=== PATIENT | female | born 1955 | race Two or more races ===

== ENCOUNTER 2024-04-26 09:04 | Inpatient (IN) | payer MEDICARE, OTHER ==
[~2024-04-26] VITALS: Ht 160 cm; Wt 59.0 kg
--- NOTE | 2024-04-26 09:14 | ED.PDOC ---
History of Present Illness HPI Comments 68-year-old female with PMHx Dementia brought in by EMS presents with a chief complaint of joint pain s/p fall at home this morning. Patient states that she suffered a fall at home trying to get out of her bed and could not get herself back up. Patient mentions that she immediately felt pain to the left hip. EMS reports that when they got her up from the floor that her left leg was shortened and rotated. Patient denies hitting her head or losing consciousness. 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[employer] SUPERVISOR Hx Family History Family History: Reviewed,noncontributory to illness Social History Smoker: Non-Smoker Alcohol: Denies ETOH Use Drugs: Denies Drug Use Lives In: Home Constitutional: denies: chills, diaphoresis, fatigue, fever, malaise, sweats, weakness, others EENTM: denies: blurred vision, double vision, ear bleeding, ear discharge, ear drainage, ear pain, ear ringing, eye pain, eye redness, hearing loss, mouth pain, mouth swelling, nasal discharge, nose bleeding, nose congestion, nose pain, photophobia, tearing, throat pain, throat swelling, voice changes, others Respiratory: denies: cough, hemoptysis, orthopnea, SOB at rest, shortness of breath, SOB with excertion, stridor, wheezing, others Cardiovascular: denies: chest pain, dizzy spells, diaphoresis, Dyspnea on exertion, edema, irregular heart beat, left arm pain, lightheadedness, palpitations, PND, syncope, others Gastrointestinal: denies: abdomen distended, abdominal pain, blood streaked bowels, constipated, diarrhea, dysphagia, difficulty swallowing, hematemesis, melena, nausea, poor appetite, poor fluid intake, rectal bleeding, rectal pain, vomiting, others Genitourinary: denies: abnormal vagina bleeding, burning, dyspareunia, dysuria, flank pain, frequency, hematuria, incontinence, pain, , vagina discharge, urgency, others Neurological: denies: dizziness, fainting, headache, left sided numbness, left sided weakness, numbness, paresthesia, pre-existing deficit, right sided numbness, right sided weakness, seizure, speech problems, tingling, tremors, weakness, others Musculoskeletal: reports: joint pain (LEFT HIP); denies: back pain, gout, joint swelling, muscle pain, muscle stiffness, neck pain, others Integumetry: denies: bruises, change in color, change in hair/nails, dryness, laceration, lesions, lumps, rash, wounds, others Allergic/Immunocompromised: denies: Difficulty Healing, Frequent Infections, Hives, Itching, others Hematologic/Lymphatic: denies: anemia, blood clots, easy bleeding, easy bruising, swollen glands, others Endocrine: denies: excessive hunger, excessive sweating, excessive thirst, excessive urination, flushing, intolerance to cold, intolerance to heat, unexpla ined weight gain, unexplained weight loss, others Psychiatric: denies: anxiety, bipolar disorder, depression, hopeless, panic disorder, schizophrenia, sleepless, suicidal, others All Other Systems: Reviewed and Negative Physical Exam General Appearance: No Apparent Distress, Normal HEENT: Normal ENT Inspection, Pharynx Normal, TMs Normal Neck: Full Range of Motion, Non-Tender, Normal, Normal Inspection Respiratory: Chest Non-Tender, Lungs Clear, No Accessory Muscle Use, No Respiratory Distress, Normal Breath Sounds Cardiovascular: No Edema, No JVD, No Murmur, No Gallop, Normal Peripheral Pulses, Regular Rate/Rhythm Breast Exam: Deferred Gastrointestinal: No Organomegaly, Non Tender, No Pulsatile Mass, Normal Bowel Sounds, Soft Genitalia: Deferred Pelvic: Deferred Rectal: Deferred Extremities: Decreased range of motion, Normal capillary refill, No pedal edema, Tender (LEFT HIP TO PALPATION) Musculoskeletal : Apperance: Normal Neurologic: Alert, 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 Was a procedure done?: No Differential Dx Considerations may include: hip fracture, femur fracture. X-Ray, Labs, Meds, VS Vital Signs Date Time Temp Pulse Resp B/P (MAP) Pulse Ox O2 Delivery O2 Flow Rate FiO2 11/26/24 11:52 85 14 193/64 04/26/24 11:34 193/64 04/26/24 10:40 60 14 04/26/24 10:28 61 (120) 94 04/26/24 09:16 98.0 65 20 123/69 (87) 94 Lab Test 04/26/24 09:39 Range/Units White Blood Count 7.3 4.4-10.8 10^3/uL Red Blood Count 4.57 4.0-5.20 10^6/uL Hemoglobin 12.9 12.2-16.2 g/dL Hematocrit 38.9 36.0-46.0 % Mean Corpuscular Volume 85.2 80.0-100.0 fL Mean Corpuscular Hemoglobin 28.3 28.0-32.0 pg Mean Corpuscular Hemoglobin Concent 33.2 32.0-36.0 g/dL Red Cell Distribution Width 14.2 11.8-14.3 % Platelet Count 135 L 140-450 10^3/uL Mean Platelet Volume 9.1 6.9-10.8 fL Neutrophils (%) (Auto) 88.3 H 37.0-80.0 % Lymphocytes (%) (Auto) 5.9 L 10.0-50.0 % Monocytes (%) (Auto) 5.5 0.0-12.0 % Eosinophils (%) (Auto) 0.1 0.0-7.0 % Basophils (%) (Auto) 0.2 0.0-2.0 % Neutrophils # (Auto) 6.4 1.6-8.6 10 ^3/uL Lymphocytes # (Auto) 0.4 0.4-5.4 10 ^3/uL Monocytes # (Auto) 0.4 0-1.3 10 ^3/uL Eosinophils # (Auto) 0 0-0.8 10 ^3/uL Basophils # (Auto) 0 0-0.2 10 ^3/uL Nucleated Red Blood Cells 0.0 % Sodium Level 145 136-145 mmol/L Potassium Level 3.1 L 3.5-5.1 mmol/L Chloride Level 110 H 98-107 mmol/L Carbon Dioxide Level 27 20-31 mmol/L Anion Gap 8 5-15 Blood Urea Nitrogen 16 9-23 mg/dL Creatinine 0.77 0.550-1.02 mg/dL Glomerular Filtration Rate Calc 83 >90 mL/min BUN/Creatinine Ratio 20.8 H 10.0-20.0 Serum Glucose 113 H 74-106 mg/dL Calcium Level 10.1 8.7-10.4 mg/dL Troponin I High Sensitivity 3 L </=34 ng/L Current Medications Medications (Trade) Dose Ordered Sig/Mimi Route Start Time Stop Time Status Last Admin Morphine Sulfate 4 mg ONCE ONCE IV 04/26/24 09:15 04/26/24 09:16 DC 04/26/24 10:40 Sodium Chloride 1,000 ml @ 1,000 mls/hr Q1H ONCE IV 04/26/24 09:15 04/26/24 10:14 DC 04/26/24 10:00 Ondansetron HCl (Zofran) 4 mg ONCE ONCE IV 04/26/24 09:15 04/26/24 09:16 DC 04/26/24 10:39 Hydralazine HCl (Apresoline Injection) 10 mg ONCE ONCE IV 04/26/24 11:45 04/26/24 11:46 DC 04/26/24 11:34 Time of 1ST Reevaluation: 09:33 Reevaluation 1ST: Unchanged Patient Education/Counseling: Diagnosis, Treatment, Prognosis Family Education/Counseling: No Family Present Departure 1 Departure Time of Disposition: 11:58 (Patient has a left femur fracture. We will admit patient for expert consultation) Impression: Primary Impression: Fracture of femoral neck, left, closed Qualified Codes: S72.002A - Fracture of unspecified part of neck of left femur, initial encounter for closed fracture Additional Impression: Fall Qualified Codes: W19.XXXA - Unspecified fall, initial encounter Disposition: ADMITTED INPATIENT Admit to: Med Surg Condition: Serious Critical Care Note Critical Care Time?: No Stability Stability form required: No I personally scribed for DEANN THOMPSON MD ([email or web address]) on 04/26/24 at 09:14. Electronically submitted by Chris Gauthier [email or web address]). DEANN THOMPSON MD Apr 26, 2024 09:14
--- NOTE | 2024-04-26 09:55 | DVH ---
PROCEDURE: Left hip radiographs. INDICATION: fall TECHNIQUE: Frontal and lateral views of the left hip were obtained. COMPARISON: None FINDINGS: There is acute comminuted intertrochanteric left femoral neck fracture. Joint spaces are m aintained. The soft tissues are unremarkable. IMPRESSION: 1. Acute comminuted left femoral neck fracture.
[2024-04-26] MEDS: SODIUM CHLORIDE 0.9% 1,000 ML IV ONE (10:00)
[2024-04-26 10:03] LABS: Basophils # (auto) 0 10 ^3/uL (0-0.2); Basophils % (auto) 0.2 % (0.0-2.0); Eosinophils # (auto) 0 10 ^3/uL (0-0.8); Eosinophils % (auto) 0.1 % (0.0-7.0); Hematocrit 38.9 % (36.0-46.0); Hemoglobin 12.9 g/dL (12.2-16.2); Lymphocytes # (auto) 0.4 10 ^3/uL (0.4-5.4); Lymphocytes % (auto) 5.9 % (10.0-50.0); Mean Corpuscular Hemoglobin 28.3 pg (28.0-32.0); Mean Corpuscular Hgb Conc. 33.2 g/dL (32.0-36.0); Mean Corpuscular Volume 85.2 fL (80.0-100.0); Monocytes # (auto) 0.4 10 ^3/uL (0-1.3); Monocytes % (auto) 5.5 % (0.0-12.0); Neutrophils # (auto) 6.4 10 ^3/uL (1.6-8.6); Neutrophils % (auto) 88.3 % (37.0-80.0); Platelet Count (auto) 135 10^3/uL (140-450); Red Blood Cells 4.57 10^6/uL (4.0-5.20); Red Cell Distribution Width 14.2 % (11.8-14.3); White Blood Cell 7.3 10^3/uL (4.4-10.8)
--- NOTE | 2024-04-26 10:04 | DVH ---
CHEST RADIOGRAPH Indication: fall Technique: Single frontal view of the chest was obtained Comparison: None FINDINGS: Lines and Tubes: None Lungs: No focal consolidation. Pleura: No effusion. No pneumothorax. Cardiomediastinal contours: Unremarkable Bones: No acute osseous abnormality. IMPRESSION: 1. No acute cardiopulmonary disease.
[2024-04-26 10:15] LABS: Anion Gap 8 (5-15); Carbon Dioxide 27 mmol/L (20-31); Chloride 110 mmol/L (98-107); Potassium 3.1 mmol/L (3.5-5.1); Sodium 145 mmol/L (136-145)
[2024-04-26 10:16] LABS: Calcium 10.1 mg/dL (8.7-10.4)
[2024-04-26 10:21] LABS: BUN/Creatinine Ratio 20.8 (10.0-20.0); Blood Urea Nitrogen 16 mg/dL (9-23); Glucose 113 mg/dL (74-106)
[2024-04-26] MEDS: ONDANSETRON HCL 4 MG/2 ML VIAL IV ONE (10:39)
[2024-04-26] MEDS: MORPHINE SULFATE 4 MG/ML SYR/VIAL IV ONE (10:40)
[2024-04-26] MEDS ORDERED: hydrALAZINE HCL 20 MG/ML VL IV ONE (10:45)
[2024-04-26 11:00] VITALS: PULSE 61; RESP 14; O2SAT 94
[2024-04-26] MEDS: hydrALAZINE HCL 20 MG/ML VL IV ONE (11:34)
[2024-04-26] MEDS ORDERED: LORazepam 0.5 MG TAB PO PRN (12:30)
[2024-04-26] MEDS ORDERED: ONDANSETRON HCL 4 MG/2 ML VIAL IV PRN (12:30)
[2024-04-26] MEDS ORDERED: ACETAMINOPHEN 325 MG TAB PO PRN (12:30)
[2024-04-26] MEDS ORDERED: TEMAZEPAM 15 MG CAP PO PRN (12:30)
[2024-04-26] MEDS ORDERED: DOCUSATE SOD 100 MG CAP PO PRN (12:30)
[2024-04-26] MEDS ORDERED: DEXTROSE (50%) 50ML SYRG IV PRN (12:30)
[2024-04-26] MEDS ORDERED: MAALOX PLUS or MAALOX 30 ML PO PRN (12:30)
--- NOTE | 2024-04-26 12:34 | DVHHP2 ---
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 Dyspnea, Edema, Lt Headedness, Other Gastrointestinal: No: Nausea, Vomiting, Abdominal Pain, Diarrhea, Constipation, Melena, Hematochezia, Other Genitourinary: No Dysuria, No Frequency, No Incontinence, No Hematuria, No Retention, No Other Musculoskeletal: leg pain Skin: No: Rash, Lesions, Jaundice, Bruising, Other Neurological: No: Weakness, Numbness, Incoordination, Change in speech, Confusion, Seizures, Other Allergies: Coded Allergies: NO KNOWN ALLERGIES (Unverified , 04/26/24) Medications Current Medications Medications Dose Ordered Sig/Mimi Route Start Time Stop Time Status Last Admin Dose Admin Diagnostic Test (Pha) 1 strip IQ4HR 04/26/24 16:00 UNV Insulin Human Regular IQ4HR SC 04/26/24 16:00 UNV Dextrose 50 ml UD PRN IV 04/26/24 12:30 UNV Sodium Chloride 1,000 ml @ 60 mls/hr [id number] IV 04/26/24 12:30 UNV Lorazepam 0.5 mg Q6HP PRN PO 04/26/24 12:30 UNV Al Hydrox/Mg Hydrox/Simethicone 30 ml Q6HP PRN PO 04/26/24 12:30 UNV Docusate Sodium 100 mg BIDPRN PRN PO 04/26/24 12:30 UNV Acetaminophen 650 mg Q6HP PRN PO 04/26/24 12:30 UNV Temazepam 15 mg QHSP PRN PO 04/26/24 12:30 UNV Acetaminophen/ Hydrocodone Bitart 1 tab Q4HP PRN PO 04/26/24 12:30 UNV Ondansetron HCl 4 mg Q4HP PRN IV 04/26/24 12:30 UNV Morphine Sulfate 2 mg Q4HPRN PRN IV 04/26/24 12:30 UNV Hydralazine HCl 10 mg Q6HPRN PRN IV 04/26/24 12:30 UNV Exam Vital Signs Vital Signs Date Time Temp Pulse Resp B/P (MAP) Pulse Ox O2 Delivery O2 Flow Rate FiO2 04/26/24 11:52 85 14 193/64 04/26/24 10:28 94 04/26/24 09:16 98.0 General Appearance: Alert, Oriented X3 HEENT: Atraumatic, PERRLA Respiratory: Clear to auscultation, Normal air movement Cardiovascular: Regular rate, Normal S1, Normal S2 Abdominal: Normal bowel sounds, Soft, No tenderness Extremities: No clubbing, No cyanosis Skin: No rashes, No breakdown Neuro: Normal gait (Unable to ambulate due to fracture), Normal speech Psych/Mental Status: Mental status NL (For cognition to the history of dementia) Labs/Xrays Labs Test 04/26/24 09:39 Range/Units White Blood Count 7.3 4.4-10.8 10^3/uL Red Blood Count 4.57 4.0-5.20 10^6/uL Hemoglobin 12.9 12.2-16.2 g/dL Hematocrit 38.9 36.0-46.0 % Mean Corpuscular Volume 85.2 80.0-100.0 fL Mean Corpuscular Hemoglobin 28.3 28.0-32.0 pg Mean Corpuscular Hemoglobin Concent 33.2 32.0-36.0 g/dL Red Cell Distribution Width 14.2 11.8-14.3 % Platelet Count 135 L 140-450 10^3/uL Mean Platelet Volume 9.1 6.9-10.8 fL Neutrophils (%) (Auto) 88.3 H 37.0-80.0 % Lymphocytes (%) (Auto) 5.9 L 10.0-50.0 % Monocytes (%) (Auto) 5.5 0.0-12.0 % Eosinophils (%) (Auto) 0.1 0.0-7.0 % Basophils (%) (Auto) 0.2 0.0-2.0 % Neutrophils # (Auto) 6.4 1.6-8.6 10 ^3/uL Lymphocytes # (Auto) 0.4 0.4-5.4 10 ^3/uL Monocytes # (Auto) 0.4 0-1.3 10 ^3/uL Eosinophils # (Auto) 0 0-0.8 10 ^3/uL Basophils # (Auto) 0 0-0.2 10 ^3/uL Nucleated Red Blood Cells 0.0 % Sodium Level 145 136-145 mmol/L Potassium Level 3.1 L 3.5-5.1 mmol/L Chloride Level 110 H 98-107 mmol/L Carbon Dioxide Level 27 20-31 mmol/L Anion Gap 8 5-15 Blood Urea Nitrogen 16 9-23 mg/dL Creatinine 0.77 0.550-1.02 mg/dL Glomerular Filtration Rate Calc 83 >90 mL/min BUN/Creatinine Ratio 20.8 H 10.0-20.0 Serum Glucose 113 H 74-106 mg/dL Calcium Level 10.1 8.7-10.4 mg/dL Troponin I High Sensitivity 3 L </=34 ng/L Assessment/Plan Assessment/Plan , semesters Acute hip fracture Patient with acute mechanical fall with fracture Orthopedic surgery consulted in the ED P.r.n. pain medication and management Patient with a history of dementia New patient was hypertensive urgency no City history of hypertension Possibly in the setting of pain Manage pain at aggressively P.r.n. hydralazine as needed for blood pressures greater than 160 systolically over 105 diastolically Awaiting for consultation and evaluation by Orthopedics with another patient is a candidate for surgery No stated history of diabetes The patient has mildly hyperglycemic Will do insulin sliding scale mild while inpatient to manage better glucose control Plan discussed with: Patient My Orders Orders - ARACELY SOTO MD Procedure Category Date Status Time Glucose Blood PHA 04/26/24 Logged (Accu-Chek Comfort 16:00 Insulin R (Human) PHA 04/26/24 Logged (Insulin R) 16:00 Dextrose 50% Syringe PHA 04/26/24 Logged 12:30 Admit ADMIT 04/26/24 Transmitted 12:23 Code Status CODE 04/26/24 Transmitted 12:23 Vital Signs [facility] 04/26/24 In Process 12:23 Review Orders With [facility] 04/26/24 In Process Adm. 12:23 Consistent DIET 04/26/24 Transmitted Carb(Ccho)Diabetes Lunch Sodium Chloride 0.9% [facility] 04/26/24 Logged 12:30 Lorazepam Tablet [facility] 04/26/24 Logged (Ativan Tablet) 12:30 Alum & Mag PHA 04/26/24 Logged Hydrox-Simethicone 12:30 Docusate Sodium [facility] 04/26/24 Logged Capsule (Colace 12:30 Acetaminophen Tablet [facility] 04/26/24 Logged (Tylenol Tablet) 12:30 Temazepam (Restoril) [facility] 04/26/24 Logged 12:30 Notify Md Of Changes [facility] 04/26/24 In Process From Base 12:23 Advance Directive [facility] 04/26/24 In Process 12:23 Basic Metabolic Panel LAB 04/27/24 Verified 04:00 Complete Blood Count LAB 04/27/24 Verified 04:00 Patient Condition ORDERS 04/26/24 Transmitted 12:23 Allergies [facility] 04/26/24 In Process 12:23 Hydrocodone-Acet [facility] 04/26/24 Logged 5/325mg Tab ([place] 12:30 Ondansetron Hcl [facility] 04/26/24 Logged (Zofran) 12:30 Morphine Sulfate [facility] 04/26/24 Logged Injection 12:30 Notify Md Of Changes [facility] 04/26/24 In Process From Base 12:23 Oxygen By Nasal RT 04/26/24 Transmitted Cannula 12:23 Hydralazine Injection [facility] 04/26/24 Logged (Apresoline Inject 12:30 Potassium Effervesent [facility] 04/26/24 Transmitted Tab (Klor-Con/Ef) 12:30 Problem List: (1) Fall (2) Fracture of femoral neck, left, closed Date of Service: Apr 26, 2024 Billing Provider: ARACELY SOTO MD Common Visit Codes: [id number] INP/OBS CARE (HIGH) ARACELY SOTO MD Apr 26, 2024 12:34
[2024-04-26] MEDS: POTASSIUM EFFERVESENT TAB 25 MEQ PO ONE (13:49)
[2024-04-26] MEDS: SODIUM CHLORIDE 0.9% 1,000 ML IV SCH (14:25)
--- NOTE | 2024-04-26 15:19 | DVHINCON2 ---
Date of service: Apr 26, 2024 Referring Physician ED Reason for Consultation LEFT HIP PAIN History of Present Illness Patient suffered GLF at home so was brought to ER for severe pain and inability to bear weight LLE. Xrays reveal intertroch fracture for which ortho consult requested. Patient is independent ambulator without assitive devices. Patient suffered recent stroke from which family states she has recovered pretty well but was diagnosed with vascular dementia which has been getting somewhat worse. Past Medical History dementia Past Surgical History unknown Social History no smoking, drinking or drugs Allergies: Coded Allergies: NO KNOWN ALLERGIES (Unverified , 04/26/24) Current Medications Current Medications Medications (Trade) Dose Ordered Sig/Mimi Route PRN Reason Start Time Stop Time Status Last Admin Diagnostic Test (Pha) (Accu-Chek Comfort Curve T) 1 strip IQ4HR 04/26/24 16:00 Insulin Human Regular (InsuLIN R) IQ4HR SC 04/26/24 16:00 Dextrose 50 ml UD PRN IV Blood Sugar LESS THAN 60 04/26/24 12:30 Sodium Chloride 1,000 ml @ 60 mls/hr [id number] IV 04/26/24 12:30 04/26/24 14:25 Lorazepam (Ativan Tablet) 0.5 mg Q6HP PRN PO ANXIETY 04/26/24 12:30 Al Hydrox/Mg Hydrox/Simethicone (Maalox Plus) 30 ml Q6HP PRN PO FOR STOMACH DISTRESS 04/26/24 12:30 Docusate Sodium (Colace Capsule) 100 mg BIDPRN PRN PO FOR CONSTIPATION 04/26/24 12:30 Acetaminophen (Tylenol Tablet) 650 mg Q6HP PRN PO PAIN SCALE 1-3 OR TEMP>100.4 04/26/24 12:30 Temazepam (Restoril) 15 mg QHSP PRN PO FOR INSOMNIA 04/26/24 12:30 Acetaminophen/ Hydrocodone Bitart ([place] 5/325MG Tab) 1 tab Q4HP PRN PO MODERATE PAIN (4-6 PAIN SCALE) 04/26/24 12:30 Ondansetron HCl (Zofran) 4 mg Q4HP PRN IV NAUSEA / VOMITING 04/26/24 12:30 Morphine Sulfate 2 mg Q4HPRN PRN IV SEVERE PAIN (7-10 PAIN SCALE) 04/26/24 12:30 Hydralazine HCl (Apresoline Injection) 10 mg Q6HPRN PRN IV SBP>160 or DBP>105 04/26/24 12:30 Review of Systems unknown Vital Signs Vital Signs Date Time Temp Pulse Resp B/P (MAP) Pulse Ox O2 Delivery O2 Flow Rate FiO2 04/26/24 12:45 80 14 156/59 (91) 94 04/26/24 11:00 Room Air* 0 21 04/26/24 09:16 98.0 Physical Exam wdwn female in nad alert but slow response, wasn't sure why she was at the hospital LLE short and rotated pain LLE with any passive rom left hip distally she could move her toes but not her ankle pulse intact no significant pedla edema xray (pelvis and hip) acute displaced left hip intertroch fracture Labs/Diagnostic Data Labs Test 04/26/24 09:39 Range/Units White Blood Count 7.3 4.4-10.8 10^3/uL Red Blood Count 4.57 4.0-5.20 10^6/uL Hemoglobin 12.9 12.2-16.2 g/dL Hematocrit 38.9 36.0-46.0 % Mean Corpuscular Volume 85.2 80.0-100.0 fL Mean Corpuscular Hemoglobin 28.3 28.0-32.0 pg Mean Corpuscular Hemoglobin Concent 33.2 32.0-36.0 g/dL Red Cell Distribution Width 14.2 11.8-14.3 % Platelet Count 135 L 140-450 10^3/uL Mean Platelet Volume 9.1 6.9-10.8 fL Neutrophils (%) (Auto) 88.3 H 37.0-80.0 % Lymphocytes (%) (Auto) 5.9 L 10.0-50.0 % Monocytes (%) (Auto) 5.5 0.0-12.0 % Eosinophils (%) (Auto) 0.1 0.0-7.0 % Basophils (%) (Auto) 0.2 0.0-2.0 % Neutrophils # (Auto) 6.4 1.6-8.6 10 ^3/uL Lymphocytes # (Auto) 0.4 0.4-5.4 10 ^3/uL Monocytes # (Auto) 0.4 0-1.3 10 ^3/uL Eosinophils # (Auto) 0 0-0.8 10 ^3/uL Basophils # (Auto) 0 0-0.2 10 ^3/uL Nucleated Red Blood Cells 0.0 % Sodium Level 145 136-145 mmol/L Potassium Level 3.1 L 3.5-5.1 mmol/L Chloride Level 110 H 98-107 mmol/L Carbon Dioxide Level 27 20-31 mmol/L Anion Gap 8 5-15 Blood Urea Nitrogen 16 9-23 mg/dL Creatinine 0.77 0.550-1.02 mg/dL Glomerular Filtration Rate Calc 83 >90 mL/min BUN/Creatinine Ratio 20.8 H 10.0-20.0 Serum Glucose 113 H 74-106 mg/dL Calcium Level 10.1 8.7-10.4 mg/dL Troponin I High Sensitivity 3 L </=34 ng/L Assessment left proximal femur displaced intertrochanteric fracture Plan/Recommendation I recommend closed reduction, cephalomedullary nail. I spoke with son/daughterinlaw and local daughter. I explained diagnosis, prognosis, procedure, options and risks which include but are not limited to infection, bleeding, transfusion, malunion, nonunion, leg length discrepancy, nerve injury, iatrogenic fracture, DVT, PE and even . Family understood and agreed to proceed. All questions answered. Local daughter has POA and consent signed with nursing witnesses. Plan discussed with: Patient, Daughter, Son MINOR REYES MD Apr 26, 2024 15:19
[2024-04-26] MEDS: InsuLIN REG 1unit/0.01ml Soln (100units/ml) SC SCH (16:00)
[2024-04-26 16:17] LABS: Urine Bacteria None Seen /hpf (None Seen)
[2024-04-26] MEDS: ACCU-CHEK COMFORT CURVE STRIP VI SCH (16:19)
[2024-04-26 16:40] LABS: Urine Blood Negative /uL (Negative); Urine Clarity Clear (Clear); Urine Color Yellow (Yellow); Urine Protein, UAD Negative (Negative); Urine Specific Gravity 1.014 (1.001-1.035); Urine Urobilinogen Normal (Negative); Urine WBC 1 /hpf (0 - 5)
[2024-04-26 19:00] VITALS: BP 153/67; PULSE 60; RESP 19; TEMP 98.7; O2SAT 92
[2024-04-26 19:25] VITALS: PULSE 60; RESP 19; O2SAT 92
[2024-04-26 20:00] VITALS: O2SAT 95
[2024-04-26 21:00] VITALS: BP 175/67; PULSE 64; RESP 17; TEMP 98.4; O2SAT 94
[2024-04-26] MEDS: hydrALAZINE HCL 20 MG/ML VL IV PRN (21:21)
[2024-04-27] VITALS (8 sets, daily range): BP systolic 116–164; BP diastolic 54–76; PULSE 64–74; RESP 14–18; TEMP 97.8–98.4; O2SAT 92–98
[2024-04-27] MEDS: MORPHINE SULFATE INJ 2 MG/ml SYRG IV PRN (04:20)
[2024-04-27 06:26] LABS: Chloride 108 mmol/L (98-107); Potassium 3.4 mmol/L (3.5-5.1); Sodium 142 mmol/L (136-145)
[2024-04-27 06:27] LABS: Anion Gap 9 (5-15); Carbon Dioxide 25 mmol/L (20-31)
[2024-04-27 06:32] LABS: Glucose 109 mg/dL (74-106)
[2024-04-27 06:33] LABS: BUN/Creatinine Ratio 15.5 (10.0-20.0); Blood Urea Nitrogen 11 mg/dL (9-23)
[2024-04-27 06:42] LABS: Basophils # (auto) 0 10 ^3/uL (0-0.2); Basophils % (auto) 0.5 % (0.0-2.0); Eosinophils # (auto) 0 10 ^3/uL (0-0.8); Eosinophils % (auto) 0.3 % (0.0-7.0); Hematocrit 36.4 % (36.0-46.0); Hemoglobin 12.2 g/dL (12.2-16.2); Lymphocytes # (auto) 0.5 10 ^3/uL (0.4-5.4); Lymphocytes % (auto) 7.8 % (10.0-50.0); Mean Corpuscular Hemoglobin 28.5 pg (28.0-32.0); Mean Corpuscular Hgb Conc. 33.6 g/dL (32.0-36.0); Mean Corpuscular Volume 84.8 fL (80.0-100.0); Monocytes # (auto) 0.4 10 ^3/uL (0-1.3); Monocytes % (auto) 5.9 % (0.0-12.0); Neutrophils # (auto) 5.8 10 ^3/uL (1.6-8.6); Neutrophils % (auto) 85.5 % (37.0-80.0); Nucleated Red Blood Cells % 0.1 %; Platelet Count (auto) 124 10^3/uL (140-450); Red Blood Cells 4.29 10^6/uL (4.0-5.20); Red Cell Distribution Width 14.4 % (11.8-14.3); White Blood Cell 6.7 10^3/uL (4.4-10.8)
[2024-04-27 08:00] LABS: INR 1.05 (0.9-1.15); Partial Thromboplastin Time 28.8 SEC (24.5-34.5); Prothrombin Time 11.1 sec (9.3-11.8)
--- NOTE | 2024-04-27 11:02 | DVH ---
EXAM: CT STROKE CTH HISTORY: Evaluate for CVA. COMPARISON: None TECHNIQUE: Axial images of the head were obtained and reformatted in coronal and sagittal planes. All CT scans at this medical facility are performed using dose modulation techniques as appropriate t o a performed exam including the following: Automated exposure control was utilized; adjustment of th e MA and/or KV according to patient size; and use of iterative reconstruction technique. CT Dose: CTDI volume is 56.99 mGy. Dose-length product is 1237.06 mGy*cm FINDINGS: There is large amount of beam hardening artifact from aneurysmal coils positioned in the left posteri or suprasellar region limiting evaluation of adjacent parenchyma. There is a chronic lacunar infarct along the right anterior thalamus. There is no evidence of acute i ntracranial hemorrhage, mass, mass effect midline shift. There is no hydrocephalus or extra-axial flu id collection. Hopkins-white matter differentiation otherwise appears maintained.. The visualized paranasal sinuses and mastoid air cells are clear. The calvarium is intact. IMPRESSION: 1. There is no gross acute intracranial process. 2. Chronic lacunar infarct along the right anterior thalamus. 3. Large amount of beam hardening artifact from aneurysm coils positioned in the left posterior supra sellar region limiting evaluation of the adjacent brain parenchyma. HS:Y
[2024-04-27] MEDS ORDERED: LIDOCAINE 1% INJ PF 5ML AMP ONE (12:07)
[2024-04-27] MEDS ORDERED: KETOROLAC TROMETH 30 MG/ML 1ML VIAL ONE (12:07)
[2024-04-27] MEDS ORDERED: PROPOFOL 10 MG/ML 20 ML IV ONE (12:07)
[2024-04-27] MEDS ORDERED: ONDANSETRON HCL 4 MG/2 ML VIAL ONE (12:07)
[2024-04-27] MEDS ORDERED: DexAMETHasone SOD PHOS 10MG/1ML VIAL INJ ONE (12:07)
[2024-04-27] MEDS ORDERED: GLYCOPYRROLATE 0.2 MG/ML 1ML VIAL ONE (12:07)
[2024-04-27] MEDS ORDERED: EPINEPHrine HCL 1 MG/1 ML AMP ONE (12:09)
[2024-04-27] MEDS: ceFAZolin 2 GM/D5W100ml 100 ML IV ONE (13:04)
--- NOTE | 2024-04-27 13:07 | DVHPN2 ---
Subjective Continue to complain of left hip pain Reviewed: Care Plan, H&P, Labs, Medications, Previous Orders, Radiology, Other (Consultation) Changes from previous H/P or p: Changes Objective Vitals Vital Signs Date Time Temp Pulse Resp B/P (MAP) Pulse Ox O2 Delivery O2 Flow Rate FiO2 04/27/24 12:16 98.2 66 18 164/56 (92) 92 98.2 04/27/24 08:00 Room Air* 0 21 Intake/Output Intake and Output 04/27/24 07:00 Intake Total 1180 ml Output Total 2100 ml Balance -920 ml Intake IV Total 1180 ml Output Urine Total 2100 ml Exam Female nurse was customer service leader General Appearance: Alert, Oriented X3, Cooperative, mild distress HEENT: Atraumatic Lungs: Clear to auscultation, Normal air movement Cardiovascular: Regular rate, Normal S1, Normal S2, No murmurs Abdomen: Normal bowel sounds, Soft, No tenderness Musculoskeletal: Other (Tender left hip) Neuro: Normal speech, Cranial nerves 3-12 NL Psych/Mental Status: Mental status NL, Mood NL Medications Current Medications Medications Dose Ordered Sig/Mimi Route Start Time Stop Time Status Last Admin Dose Admin Diagnostic Test (Pha) 1 strip IQ4HR 04/26/24 16:00 04/27/24 08:37 1 STRIP Insulin Human Regular IQ4HR SC 04/26/24 16:00 Dextrose 50 ml UD PRN IV 04/26/24 12:30 Sodium Chloride 1,000 ml @ 60 mls/hr [id number] IV 04/26/24 12:30 04/27/24 05:16 60 MLS/HR Lorazepam 0.5 mg Q6HP PRN PO 04/26/24 12:30 Al Hydrox/Mg Hydrox/Simethicone 30 ml Q6HP PRN PO 04/26/24 12:30 Docusate Sodium 100 mg BIDPRN PRN PO 04/26/24 12:30 Acetaminophen 650 mg Q6HP PRN PO 04/26/24 12:30 Temazepam 15 mg QHSP PRN PO 04/26/24 12:30 Acetaminophen/ Hydrocodone Bitart 1 tab Q4HP PRN PO 04/26/24 12:30 Ondansetron HCl 4 mg Q4HP PRN IV 04/26/24 12:30 Morphine Sulfate 2 mg Q4HPRN PRN IV 04/26/24 12:30 04/27/24 12:03 2 MG Hydralazine HCl 10 mg Q6HPRN PRN IV 04/26/24 12:30 04/26/24 21:21 10 MG Laboratory Results Laboratory Tests 04/27/24 05:32 Chemistry Test 04/27/24 05:32 Calcium Level 9.0 mg/dL (8.7-10.4) Coagulation Test 04/27/24 05:32 Prothrombin Time 11.1 sec (9.3-11.8) Prothrombin Time INR 1.05 (0.9-1.15) Activated Partial Thromboplast Time 28.8 SEC (24.5-34.5) Urinalysis Test 04/26/24 16:17 Urine Color Yellow (Yellow) Urine Clarity Clear (Clear) Urine pH 6.0 (5.0-9.0) Urine Specific [place] 1.014 (1.001-1.035) Urine Protein Negative (Negative) Urine Ketones Negative (Negative) Urine Blood Negative /uL (Negative) Urine Nitrite Negative (Negative) Urine Bilirubin Negative (Negative) Urine Urobilinogen Normal mg/dL (Negative) Urine Leukocyte Esterase Negative /uL (Negative) Urine RBC 1 /hpf (0 - 4) Urine WBC 1 /hpf (0 - 5) Urine Squamous Epithelial Cells Few /hpf (<5) Urine Bacteria None seen /hpf (None Seen) Urine Glucose Normal mg/dL (Normal) Labs and/or images reviewed: Labs reviewed by me, Image(s) reviewed by me Assessment/Plan Assessment/Plan A 68-year-old female patient with multiple comorbidities; who presented to the emergency department after a fall that resulted in left hip fracture. #Left hip pain due to comminuted displaced left proximal femur intertrochanteric fracture due to fall; orthopedic surgery is following; surgery is planned for today; continue pain management as needed; reviewed the available imaging studies; fall precautions; continue monitoring #Suspected acute metabolic/toxic encephalopathy; patient has no recollection of the fall but awake, alert, and oriented; family members concerned about stroke; head CT without contrast ordered; continue monitoring #History of stroke; holding aspirin statin for now; head CT ordered as above; continue monitoring #Thrombocytopenia; mild; no signs/symptoms of bleeding; continue monitoring #RIA with hypokalemia; suspected vasomotor nephropathy; replace electrolyte as needed; avoid nephrotoxic agents; continue IV fluids; continue monitoring #Essential hypertension; holding home antihypertensive medications; continue IV hydralazine as needed; continue monitoring Goals of care discussed for 20 minutes; full code This medical document was created using an electronic medical record system with computerized dictation system. Although this document has been carefully reviewed, there might still be some phonetic and typographical errors. These areas are purely typographical due to imperfections of the software programs, and do not reflect any compromise in the patient's medical care. Plan discussed with: Patient, Other (Nurse) My Orders Orders - MARIO GREENFIELD MD Procedure Category Date Status Time Ct Head Cva CT 04/27/24 Resulted 10:23 Drug Screen LAB 04/27/24 Logged 10:24 Date of Service: Apr 27, 2024 Billing Provider: MARIO GREENFIELD MD Common Visit Codes: [id number] INP/OBS CARE(HIGH) Secondary Visit Codes: [id number] CARE PLAN 30 MINUTES (20 minutes) MARIO GREENFIELD MD Apr 27, 2024 13:07
[2024-04-27] MEDS: CELECOXIB 100 MG CAP PO ONE (13:17)
[2024-04-27] MEDS: ACETAMINOPHEN IV 1000 MG/100ML (10MG/ML) IV ONE (13:17)
[2024-04-27] MEDS: GABAPENTIN 300 MG CAP PO ONE (13:17)
[2024-04-27] MEDS: BUPIVACAINE HCL 50 ML ONE (13:27)
[2024-04-27] MEDS: BUPIVACAINE 0.25% INJ 50ML VIAL ONE (13:27)
[2024-04-27] MEDS: DexAMETHasone SOD PHOS 4 MG/1ML SDV INJ ONE (13:27)
[2024-04-27 13:51] LABS: Amphetamine Screen, Urine Neg (NEGATIVE); Barbiturate Scree,Urine Neg (NEGATIVE); Benzodiazephine Screen, Urine Neg (NEGATIVE); Cannabinoid Screen, Urine Neg (NEGATIVE); Cocaine Screen, Urine Neg (NEGATIVE); Opiate Scree,Urine Neg (NEGATIVE); Phencyclidine Screen, Urine Neg (NEGATIVE)
--- NOTE | 2024-04-27 15:16 | DVHOP2 ---
Operative Report - 2 Report Details Date: 04/27/24 Preop Diagnosis: Left proximal femur intertrochanteric fracture Postop Diagnosis: Same Surgeon: Minor Reyes MD Can Filler: Tho CALLEJAS Anesthesiologist: Jaron Drake Anesthesia: General Implant: AOS short cephalomedullary nail with 95 mm hip screw and 36 mm distal locking screw Consent: The patient was informed of the risks and benefits of the procedure. These include but are not limited to complications of anesthesia, postoperative infection, incomplete relief of symptoms, recurrence of symptoms, damage to blood vessels, nerves and tendons, deep venous thrombosis, pulmonary embolism and possible need for repeat surgery in the future. Complications: None Estimated Blood Loss: 25 cc Fluids: See anesthesia record Findings: Comminuted displaced left proximal femur intertrochanteric fracture Indications for Surgery: Unstable hip fracture Name of Procedure Performed Closed reduction, cephalomedullary nail left proximal femur intertrochanteric fracture with C-arm fluoroscopy Procedure Details Procedure Details: The patient was brought to the operating room and placed on the [place] table in the supine position. The patient was given spinal anesthetic with adequate analgesia obtained. Preop patient received IV Ancef. Nonoperative extremity was placed in the well-leg almanzar. Operative extremity placed in boot traction. Closed reduction maneuver performed and verified with C-arm fluoroscopy in AP and lateral views. Surgical timeout performed verifying patient, laterality and procedure. Operative extremity was prepped and draped in sterile fashion. Incision was made proximal to the greater trochanter then I incised the fascia. I passed a guidewire into the proximal femur and adjusted the position based on AP and lateral views with C arm. I used the soft tissue protector and reamed over the guidewire then guidewire was removed. I then inserted the previously templated nail until appropriate depth was reached based on C-arm fluoroscopy. I then passed the hip screw cannula to skin then made skin and fascial incision and passed it to bone. I inserted a guidewire into the proximal femoral neck and head and again adjusted position based on C arm. I measured for length. I then reamed and inserted the hip screw. I released traction and applied the compression nut. I then pulled back on the silver sleeve and turned the black handle. Guidewire and cannula were removed. I then removed the insertion device to allow hip screw compression. Cannula was removed. I then used the distal locking cannula through the static hole passing it to skin and making skin and fascial incision then passing it to bone. I drilled and measured length off the drill bit and inserted distal locking screw. I obtain C arm views AP and lateral throughout the length of the construct to verify fracture reduction and hardware placement. Wounds were irrigated with normal saline. Fascial tissue closed with 0 Vicryl. Subcu closed with 2-0 Vicryl. Skin closed with edu. Wounds dressed sterilely. Patient tolerated procedure well was brought to recovery in stable condition. Condition Stable Disposition Still a Patient MINOR REYES MD Apr 27, 2024 15:16
[2024-04-27] MEDS: LACTATED RINGER'S 1,000 ML IV SCH (16:04)
--- NOTE | 2024-04-27 16:35 | DVH ---
CLINICAL INDICATION: LEFT HIP NAILING TECHNIQUE: 11 radiographic views of the ORIF left hip were obtained. Comparison: XY L HIP COMPLETE XRAY on DOS: 04/26/24 FINDINGS/IMPRESSION: 11 images of an ORIF of the left hip. Total fluoro time 40.3 seconds Cumulative dose: 4.91 mGy
--- NOTE | 2024-04-27 16:36 | DVH ---
C-ARM FLUOROSCOPY: PROCEDURE: ORIF left hip FLUOROSCOPY TIME: 40.3 seconds Cumulative dose: 4.91 mGy
[2024-04-27] MEDS: ceFAZolin 2 GM/D5W50ml 50 ML IV SCH (21:49)
[2024-04-27] MEDS: SODIUM CHLOR 0.9% PF (SALINE LOCK) 10ML VIAL/SYR IV SCH (21:49)
[2024-04-28] VITALS (7 sets, daily range): BP systolic 121–174; BP diastolic 58–95; PULSE 62–81; RESP 16–20; TEMP 97.8–98.6; O2SAT 94–96
[2024-04-28 06:05] LABS: Basophils # (auto) 0 10 ^3/uL (0-0.2); Eosinophils # (auto) 0 10 ^3/uL (0-0.8); Hematocrit 31.7 % (36.0-46.0); Hemoglobin 10.7 g/dL (12.2-16.2); Lymphocytes # (auto) 0.6 10 ^3/uL (0.4-5.4); Mean Corpuscular Hemoglobin 28.8 pg (28.0-32.0); Mean Corpuscular Hgb Conc. 33.7 g/dL (32.0-36.0); Mean Corpuscular Volume 85.4 fL (80.0-100.0); Monocytes # (auto) 0.6 10 ^3/uL (0-1.3); Monocytes % (auto) 7.8 % (0.0-12.0); Neutrophils # (auto) 6.7 10 ^3/uL (1.6-8.6); Neutrophils % (auto) 85.2 % (37.0-80.0); Nucleated Red Blood Cells % 0.1 %; Platelet Count (auto) 124 10^3/uL (140-450); Red Blood Cells 3.71 10^6/uL (4.0-5.20); Red Cell Distribution Width 14.6 % (11.8-14.3); White Blood Cell 7.8 10^3/uL (4.4-10.8)
[2024-04-28 06:25] LABS: Albumin 3.7 g/dL (3.2-4.8); Alkaline Phosphatase 49 U/L (46-116); Anion Gap 9 (5-15); Bilirubin, Total 0.6 mg/dL (0.2-1.0); Blood Urea Nitrogen 16 mg/dL (9-23); Calcium 9.1 mg/dL (8.7-10.4); Carbon Dioxide 27 mmol/L (20-31); Chloride 106 mmol/L (98-107); Magnesium 1.8 mg/dL (1.6-2.6); Sodium 142 mmol/L (136-145)
[2024-04-28 06:49] LABS: Alanine Aminotransferase < 9 U/L (7-40); Aspartate Aminotransferase < 8 U/L (13-40); Glucose 132 mg/dL (74-106); Total Protein 5.7 g/dL (5.7-8.2)
[2024-04-28] MEDS: ENOXAPARIN SOD 40 MG/0.4 ML SYRINGE SC SCH (08:18)
--- NOTE | 2024-04-28 11:49 | DVHPN2 ---
Progress Note - Dictate Date Seen: Apr 28, 2024 Medical Necessity Reason Pt with a Central, PICC or Fol: No Subjective Patient was lying comfortably in bed during my evaluation and reports some postoperative hip pain that is being well managed with the help of pain medication. Patient reports that she has only been able to take a few steps near bedside to use her commode and then back to her bed. Patient is otherwise feeling well denying any other complaints or concerns during my evaluation. vital signs Vital Sign Date Time Temp Pulse Resp B/P (MAP) Pulse Ox O2 Delivery O2 Flow Rate FiO2 04/28/24 09:00 98.4 66 16 174/78 (110) 96 98.4 04/28/24 08:01 Room Air* 0 21 Total Intake and Output 04/27/24 04/27/24 04/28/24 15:00 23:00 07:00 Intake Total 100 ml 1000 ml 1000 ml Output Total 550 ml 250 ml Balance 100 ml 450 ml 750 ml medications Current Medications Medications Dose Ordered Sig/Mimi Route Start Time Stop Time Status Last Admin Dose Admin Sodium Chloride 1,000 ml @ 60 mls/hr [id number] IV 04/26/24 12:30 04/27/24 21:48 60 MLS/HR Lorazepam 0.5 mg Q6HP PRN PO 04/26/24 12:30 Al Hydrox/Mg Hydrox/Simethicone 30 ml Q6HP PRN PO 04/26/24 12:30 Docusate Sodium 100 mg BIDPRN PRN PO 04/26/24 12:30 Acetaminophen 650 mg Q6HP PRN PO 04/26/24 12:30 Temazepam 15 mg QHSP PRN PO 04/26/24 12:30 Acetaminophen/ Hydrocodone Bitart 1 tab Q4HP PRN PO 04/26/24 12:30 Ondansetron HCl 4 mg Q4HP PRN IV 04/26/24 12:30 Morphine Sulfate 2 mg Q4HPRN PRN IV 04/26/24 12:30 04/28/24 05:47 2 MG Hydralazine HCl 10 mg Q6HPRN PRN IV 04/26/24 12:30 04/28/24 08:17 10 MG Lactated Ringer's 1,000 ml @ 100 mls/hr Q10H IV 04/27/24 15:30 04/28/24 01:30 100 MLS/HR Sodium Chloride 10 ml Q8HR IV 04/27/24 22:00 04/28/24 05:35 10 ML Enoxaparin Sodium 40 mg DAILY SC 04/28/24 10:00 04/28/24 08:18 40 MG objective A&O x4 in no acute distress Hip range of motion grossly limited with pain on movement Dressing clean, dry, and intact No distal edema or calf tenderness to palpation Neurovascularly intact with cap refill less than 2 seconds laboratory and microbiology Laboratory Tests 04/28/24 05:41 Test 04/28/24 05:41 Range/Units Serum Glucose 132 H 74-106 mg/dL Assessment/Plan Continue current management as well as pain control and physical therapy. Advised patient to remain weight-bearing as tolerated with the assistance of a walker and to maintain her dressings clean, dry, and intact. I instructed the patient to follow up with our office in 10-14 days for her 1st postoperative evaluation and to call our office if she has any questions or concerns. She understood and agreed. Plan discussed with: Patient KAREEN DE LA CRUZ Apr 28, 2024 11:49
--- NOTE | 2024-04-28 12:31 | DVHPN2 ---
Subjective Decreasing left hip pain Reviewed: Care Plan, H&P, Labs, Medications, Previous Orders, Radiology, Other (Consultation) Changes from previous H/P or p: Changes Objective Vitals Vital Signs Date Time Temp Pulse Resp B/P (MAP) Pulse Ox O2 Delivery O2 Flow Rate FiO2 04/28/24 11:54 88 14 159/78 04/28/24 09:00 98.4 96 98.4 04/28/24 08:01 Room Air* 0 21 Intake/Output Intake and Output 04/28/24 07:00 Intake Total 2100 ml Output Total 800 ml Balance 1300 ml Intake Oral 1000 ml IV Total 1100 ml Output Urine Total 800 ml Exam Female nurse was faculty i on call medical assistant General Appearance: Alert, Oriented X3, Cooperative, mild distress HEENT: Atraumatic Lungs: Clear to auscultation, Normal air movement Cardiovascular: Regular rate, Normal S1, Normal S2, No murmurs Abdomen: Normal bowel sounds, Soft, No tenderness Musculoskeletal: Other (Clean dressing on the surgical wound with no swelling/discharge/bleeding with mild tenderness) Neuro: Normal speech, Cranial nerves 3-12 NL Psych/Mental Status: Mental status NL, Mood NL Medications Current Medications Medications Dose Ordered Sig/Mimi Route Start Time Stop Time Status Last Admin Dose Admin Sodium Chloride 1,000 ml @ 60 mls/hr [id number] IV 04/26/24 12:30 04/27/24 21:48 60 MLS/HR Lorazepam 0.5 mg Q6HP PRN PO 04/26/24 12:30 Al Hydrox/Mg Hydrox/Simethicone 30 ml Q6HP PRN PO 04/26/24 12:30 Docusate Sodium 100 mg BIDPRN PRN PO 04/26/24 12:30 Acetaminophen 650 mg Q6HP PRN PO 04/26/24 12:30 Temazepam 15 mg QHSP PRN PO 04/26/24 12:30 Acetaminophen/ Hydrocodone Bitart 1 tab Q4HP PRN PO 04/26/24 12:30 Ondansetron HCl 4 mg Q4HP PRN IV 04/26/24 12:30 Morphine Sulfate 2 mg Q4HPRN PRN IV 04/26/24 12:30 04/28/24 11:54 2 MG Hydralazine HCl 10 mg Q6HPRN PRN IV 04/26/24 12:30 04/28/24 08:17 10 MG Lactated Ringer's 1,000 ml @ 100 mls/hr Q10H IV 04/27/24 15:30 04/28/24 01:30 100 MLS/HR Sodium Chloride 10 ml Q8HR IV 04/27/24 22:00 04/28/24 11:48 10 ML Enoxaparin Sodium 40 mg DAILY SC 04/28/24 10:00 04/28/24 08:18 40 MG Laboratory Results Laboratory Tests 04/28/24 05:41 Chemistry Test 04/28/24 05:41 Albumin 3.7 g/dL (3.2-4.8) Calcium Level 9.1 mg/dL (8.7-10.4) Magnesium Level 1.8 mg/dL (1.6-2.6) Total Protein 5.7 g/dL (5.7-8.2) LFT Test 04/28/24 05:41 Alanine Aminotransferase (ALT) < 9 U/L (7-40) Alkaline Phosphatase 49 U/L (46-116) Aspartate Amino Transferase (AST) < 8 U/L (13-40) L Total Bilirubin 0.6 mg/dL (0.2-1.0) Urinalysis Test 04/26/24 16:17 Urine Color Yellow (Yellow) Urine Clarity Clear (Clear) Urine pH 6.0 (5.0-9.0) Urine Specific [place] 1.014 (1.001-1.035) Urine Protein Negative (Negative) Urine Ketones Negative (Negative) Urine Blood Negative /uL (Negative) Urine Nitrite Negative (Negative) Urine Bilirubin Negative (Negative) Urine Urobilinogen Normal mg/dL (Negative) Urine Leukocyte Esterase Negative /uL (Negative) Urine RBC 1 /hpf (0 - 4) Urine WBC 1 /hpf (0 - 5) Urine Squamous Epithelial Cells Few /hpf (<5) Urine Bacteria None seen /hpf (None Seen) Urine Glucose Normal mg/dL (Normal) Labs and/or images reviewed: Labs reviewed by me, Image(s) reviewed by me Assessment/Plan Assessment/Plan A 68-year-old female patient with multiple comorbidities; who presented to the emergency department after a fall that resulted in left hip fracture. #Left hip pain due to comminuted displaced left proximal femur intertrochanteric fracture due to fall status post repair with closed reduction and intramedullary nail on April 27, 2024; continue pain management as needed; reviewed the available imaging studies; DVT prophylaxis; fall precautions; physical therapy is following; continue monitoring #Blood loss anemia; continue monitoring #Suspected acute metabolic/toxic encephalopathy; patient has no recollection of the fall but awake, alert, and oriented; family members concerned about stroke; head CT without contrast reviewed; negative drug screen and alcohol level; continue monitoring #History of stroke; holding aspirin and statin for now; head CT reviewed as above; continue monitoring #History of brain aneurysm status post coiling; shown on head CT; continue monitoring #Thrombocytopenia; mild; no signs/symptoms of bleeding; continue monitoring #RIA with hypokalemia; suspected vasomotor nephropathy; replace electrolyte as needed; avoid nephrotoxic agents; continue IV fluids; continue monitoring #Essential hypertension; holding home antihypertensive medications; continue IV hydralazine as needed; continue monitoring Consulted Thermostat Machine Tender for discharge planning This medical document was created using an electronic medical record system with computerized dictation system. Although this document has been carefully reviewed, there might still be some phonetic and typographical errors. These areas are purely typographical due to imperfections of the software programs, and do not reflect any compromise in the patient's medical care. Plan discussed with: Patient, Other (Nurse) Date of Service: Apr 28, 2024 Billing Provider: MARIO GREENFIELD MD Common Visit Codes: [id number] INP/OBS CARE(HIGH) MARIO GREENFIELD MD Apr 28, 2024 12:31
[2024-04-28] MEDS: HYDROcodone-ACET 5/325MG TAB PO PRN (18:03)
[2024-04-29] VITALS (8 sets, daily range): BP systolic 141–170; BP diastolic 64–82; PULSE 80–89; RESP 18–20; TEMP 97.8–98.4; O2SAT 93–97
[2024-04-29 06:03] LABS: Basophils # (auto) 0 10 ^3/uL (0-0.2); Basophils % (auto) 0.4 % (0.0-2.0); Eosinophils # (auto) 0.1 10 ^3/uL (0-0.8); Eosinophils % (auto) 1.8 % (0.0-7.0); Hematocrit 28.1 % (36.0-46.0); Hemoglobin 9.3 g/dL (12.2-16.2); Lymphocytes # (auto) 0.6 10 ^3/uL (0.4-5.4); Lymphocytes % (auto) 10.6 % (10.0-50.0); Mean Corpuscular Hemoglobin 28.3 pg (28.0-32.0); Mean Corpuscular Hgb Conc. 33.1 g/dL (32.0-36.0); Mean Corpuscular Volume 85.4 fL (80.0-100.0); Monocytes # (auto) 0.5 10 ^3/uL (0-1.3); Monocytes % (auto) 8.5 % (0.0-12.0); Neutrophils # (auto) 4.8 10 ^3/uL (1.6-8.6); Neutrophils % (auto) 78.7 % (37.0-80.0); Platelet Count (auto) 115 10^3/uL (140-450); Red Blood Cells 3.29 10^6/uL (4.0-5.20); Red Cell Distribution Width 14.2 % (11.8-14.3); White Blood Cell 6.1 10^3/uL (4.4-10.8)
[2024-04-29 06:25] LABS: Albumin 3.7 g/dL (3.2-4.8); Alkaline Phosphatase 48 U/L (46-116); Anion Gap 12 (5-15); Bilirubin, Total 0.7 mg/dL (0.2-1.0); Blood Urea Nitrogen 18 mg/dL (9-23); Calcium 9.3 mg/dL (8.7-10.4); Carbon Dioxide 26 mmol/L (20-31); Sodium 145 mmol/L (136-145)
[2024-04-29 06:26] LABS: Alanine Aminotransferase < 9 U/L (7-40); Aspartate Aminotransferase 11 U/L (13-40); Chloride 107 mmol/L (98-107); Glucose 113 mg/dL (74-106); Potassium 3.4 mmol/L (3.5-5.1); Total Protein 5.6 g/dL (5.7-8.2)
--- NOTE | 2024-04-29 12:09 | DVHPN2 ---
Subjective Decreasing left hip pain but confused Reviewed: Care Plan, H&P, Labs, Medications, Previous Orders, Radiology, Other (Consultation) Changes from previous H/P or p: Changes Objective Vitals Vital Signs Date Time Temp Pulse Resp B/P (MAP) Pulse Ox O2 Delivery O2 Flow Rate FiO2 04/29/24 09:46 87 18 167/64 04/29/24 08:49 97.8 97 97.8 04/28/24 20:00 Room Air* 0 21 Intake/Output Intake and Output 04/29/24 07:00 Intake Total 1220 ml Output Total 250 ml Balance 970 ml Intake Oral 1050 ml IV Total 170 ml Output Urine Total 250 ml Stool Total 0 ml # Voids 2 Exam Female nurse was nnps General Appearance: Alert, Oriented X3, Cooperative, mild distress, Other (Confused) HEENT: Atraumatic Lungs: Clear to auscultation, Normal air movement Cardiovascular: Regular rate, Normal S1, Normal S2, No murmurs Abdomen: Normal bowel sounds, Soft, No tenderness Musculoskeletal: Other (Clean dressing on the surgical wound with no swelling/discharge/bleeding with mild tenderness) Neuro: Normal speech, Cranial nerves 3-12 NL, Other (Confused) Psych/Mental Status: Mental status NL, Mood NL Medications Current Medications Medications Dose Ordered Sig/Mimi Route Start Time Stop Time Status Last Admin Dose Admin Lorazepam 0.5 mg Q6HP PRN PO 04/26/24 12:30 Al Hydrox/Mg Hydrox/Simethicone 30 ml Q6HP PRN PO 04/26/24 12:30 Docusate Sodium 100 mg BIDPRN PRN PO 04/26/24 12:30 Acetaminophen 650 mg Q6HP PRN PO 04/26/24 12:30 Temazepam 15 mg QHSP PRN PO 04/26/24 12:30 Acetaminophen/ Hydrocodone Bitart 1 tab Q4HP PRN PO 04/26/24 12:30 04/28/24 18:03 1 TAB Ondansetron HCl 4 mg Q4HP PRN IV 04/26/24 12:30 Morphine Sulfate 2 mg Q4HPRN PRN IV 04/26/24 12:30 04/29/24 09:46 2 MG Hydralazine HCl 10 mg Q6HPRN PRN IV 04/26/24 12:30 04/28/24 08:17 10 MG Sodium Chloride 10 ml Q8HR IV 04/27/24 22:00 04/29/24 05:17 10 ML Enoxaparin Sodium 40 mg DAILY SC 04/28/24 10:00 04/28/24 08:18 40 MG Laboratory Results Laboratory Tests 04/29/24 05:31 Chemistry Test 04/29/24 05:31 Albumin 3.7 g/dL (3.2-4.8) Calcium Level 9.3 mg/dL (8.7-10.4) Total Protein 5.6 g/dL (5.7-8.2) L LFT Test 04/29/24 05:31 Alanine Aminotransferase (ALT) < 9 U/L (7-40) Alkaline Phosphatase 48 U/L (46-116) Aspartate Amino Transferase (AST) 11 U/L (13-40) L Total Bilirubin 0.7 mg/dL (0.2-1.0) Urinalysis Test 04/26/24 16:17 Urine Color Yellow (Yellow) Urine Clarity Clear (Clear) Urine pH 6.0 (5.0-9.0) Urine Specific [place] 1.014 (1.001-1.035) Urine Protein Negative (Negative) Urine Ketones Negative (Negative) Urine Blood Negative /uL (Negative) Urine Nitrite Negative (Negative) Urine Bilirubin Negative (Negative) Urine Urobilinogen Normal mg/dL (Negative) Urine Leukocyte Esterase Negative /uL (Negative) Urine RBC 1 /hpf (0 - 4) Urine WBC 1 /hpf (0 - 5) Urine Squamous Epithelial Cells Few /hpf (<5) Urine Bacteria None seen /hpf (None Seen) Urine Glucose Normal mg/dL (Normal) Labs and/or images reviewed: Labs reviewed by me, Image(s) reviewed by me Assessment/Plan Assessment/Plan A 68-year-old female patient with multiple comorbidities; who presented to the emergency department after a fall that resulted in left hip fracture. #Left hip pain due to comminuted displaced left proximal femur intertrochanteric fracture due to fall status post repair with closed reduction and intramedullary nail on April 27, 2024; continue pain management as needed; reviewed the available imaging studies; DVT prophylaxis; fall precautions; physical therapy is following; continue monitoring #Blood loss anemia; dropping hemoglobin; continue monitoring #Acute metabolic/toxic encephalopathy; patient has no recollection of the fall but awake, alert, and oriented; worsening confusion (forgot that she had surgery) this morning so will order brain MRI; family members concerned about stroke; head CT without contrast reviewed; negative drug screen and alcohol level; continue monitoring #History of stroke; holding aspirin and statin for now; head CT reviewed as above; continue monitoring #History of brain aneurysm status post coiling; shown on head CT; continue monitoring #Thrombocytopenia; mild; no signs/symptoms of bleeding; continue monitoring #RIA with hypokalemia; suspected vasomotor nephropathy; replace electrolyte as needed; avoid nephrotoxic agents; continue IV fluids; continue monitoring #Essential hypertension; holding home antihypertensive medications; continue IV hydralazine as needed; continue monitoring Presiding Judge consulted for discharge planning This medical document was created using an electronic medical record system with computerized dictation system. Although this document has been carefully reviewed, there might still be some phonetic and typographical errors. These areas are purely typographical due to imperfections of the software programs, and do not reflect any compromise in the patient's medical care. Plan discussed with: Patient, Other (Nurse) My Orders Orders - MARIO GREENFIELD MD Procedure Category Date Status Time * Presiding Judge CONS 04/28/24 Transmitted Consult Complete Blood Count LAB 04/30/24 Verified 04:00 Basic Metabolic Panel LAB 04/30/24 Verified 04:00 Magnesium LAB 04/30/24 Verified 04:00 Date of Service: Apr 29, 2024 Billing Provider: MARIO GREENFIELD MD Common Visit Codes: [id number] INP/OBS CARE(HIGH) MARIO GREENFIELD MD Apr 29, 2024 12:09
[2024-04-29] MEDS: POTASSIUM EFFERVESENT TAB 25 MEQ PO ONE (14:27)
[2024-04-30] VITALS (10 sets, daily range): BP systolic 143–197; BP diastolic 53–78; PULSE 63–89; RESP 16–20; TEMP 98.1–99.1; O2SAT 94–97
[2024-04-30] MEDS ORDERED: PNEUMOCOCCAL VACC POLYS 25 MCG/0.5 ML VIAL IM ONE
[2024-04-30 06:11] LABS: Basophils # (auto) 0 10 ^3/uL (0-0.2); Basophils % (auto) 0.6 % (0.0-2.0); Eosinophils # (auto) 0.2 10 ^3/uL (0-0.8); Eosinophils % (auto) 3.4 % (0.0-7.0); Hematocrit 25.7 % (36.0-46.0); Hemoglobin 8.8 g/dL (12.2-16.2); Lymphocytes % (auto) 21.4 % (10.0-50.0); Mean Corpuscular Hemoglobin 28.7 pg (28.0-32.0); Mean Corpuscular Hgb Conc. 34.1 g/dL (32.0-36.0); Mean Corpuscular Volume 84.4 fL (80.0-100.0); Monocytes # (auto) 0.4 10 ^3/uL (0-1.3); Monocytes % (auto) 8.8 % (0.0-12.0); Neutrophils % (auto) 65.8 % (37.0-80.0); Nucleated Red Blood Cells % 0.1 %; Platelet Count (auto) 131 10^3/uL (140-450); Red Blood Cells 3.05 10^6/uL (4.0-5.20); Red Cell Distribution Width 14.2 % (11.8-14.3); White Blood Cell 4.6 10^3/uL (4.4-10.8)
[2024-04-30 06:25] LABS: Anion Gap 10 (5-15); Carbon Dioxide 27 mmol/L (20-31); Potassium 3.6 mmol/L (3.5-5.1); Sodium 144 mmol/L (136-145)
[2024-04-30 06:26] LABS: Calcium 9.3 mg/dL (8.7-10.4)
[2024-04-30 06:31] LABS: Blood Urea Nitrogen 13 mg/dL (9-23); Glucose 104 mg/dL (74-106); Magnesium 1.9 mg/dL (1.6-2.6)
[2024-04-30 06:35] LABS: Chloride 107 mmol/L (98-107)
[2024-04-30] MEDS ORDERED: AMLO1TAB22 PO (09:34)
[2024-04-30] MEDS ORDERED: BENA40TA71 PO (10:25)
[2024-04-30] MEDS ORDERED: HYDR25TA88 PO (10:26)
[2024-04-30] MEDS ORDERED: ATEN100T PO (10:26)
[2024-04-30] MEDS: amLODIPine BESYLATE 5 MG TAB PO ONE (12:16)
[2024-04-30] MEDS: ATENOLOL 25 MG TAB PO ONE (12:16)
[2024-04-30] MEDS: BENAZEPRIL HCL 10 MG TAB PO ONE (12:17)
--- NOTE | 2024-04-30 13:23 | DVHPN2 ---
Subjective Decreasing left hip pain; still confused; decreasing blood pressure readings Reviewed: Care Plan, H&P, Labs, Medications, Previous Orders, Radiology, Other (Consultation) Changes from previous H/P or p: Changes Objective Vitals Vital Signs Date Time Temp Pulse Resp B/P (MAP) Pulse Ox O2 Delivery O2 Flow Rate FiO2 04/30/24 12:17 182/78 04/30/24 12:16 89 04/30/24 12:00 99.1 18 96 99.1 04/29/24 20:30 Room Air* 0 21 Intake/Output Intake and Output 04/30/24 07:00 Intake Total 750 ml Output Total 300 ml Balance 450 ml Intake Oral 750 ml Output Urine Total 300 ml # Voids 3 # Bowel Movements 1 Exam Female nurse was trommel tender General Appearance: Alert, Oriented X3, Cooperative, No acute distress, Other (Confused) HEENT: Atraumatic Lungs: Clear to auscultation, Normal air movement Cardiovascular: Regular rate, Normal S1, Normal S2, No murmurs Abdomen: Normal bowel sounds, Soft, No tenderness Musculoskeletal: Other (Clean dressing on the surgical wound with no swelling/discharge/bleeding with mild tenderness) Neuro: Normal speech, Cranial nerves 3-12 NL, Other (Confused) Psych/Mental Status: Mental status NL, Mood NL Medications Current Medications Medications Dose Ordered Sig/Mimi Route Start Time Stop Time Status Last Admin Dose Admin Lorazepam 0.5 mg Q6HP PRN PO 04/26/24 12:30 Al Hydrox/Mg Hydrox/Simethicone 30 ml Q6HP PRN PO 04/26/24 12:30 Docusate Sodium 100 mg BIDPRN PRN PO 04/26/24 12:30 Acetaminophen 650 mg Q6HP PRN PO 04/26/24 12:30 Temazepam 15 mg QHSP PRN PO 04/26/24 12:30 Acetaminophen/ Hydrocodone Bitart 1 tab Q4HP PRN PO 04/26/24 12:30 04/28/24 18:03 1 TAB Ondansetron HCl 4 mg Q4HP PRN IV 04/26/24 12:30 Morphine Sulfate 2 mg Q4HPRN PRN IV 04/26/24 12:30 04/29/24 09:46 2 MG Hydralazine HCl 10 mg Q6HPRN PRN IV 04/26/24 12:30 04/30/24 08:19 10 MG Sodium Chloride 10 ml Q8HR IV 04/27/24 22:00 04/30/24 05:31 10 ML Enoxaparin Sodium 40 mg DAILY SC 04/28/24 10:00 04/30/24 08:19 40 MG Benazepril HCl 40 mg DAILY PO 05/01/24 10:00 Atenolol 100 mg DAILY PO 05/01/24 10:00 Amlodipine Besylate 5 mg DAILY PO 05/01/24 10:00 Hydralazine HCl 25 mg Q8HR PO 04/30/24 14:00 Laboratory Results Laboratory Tests 04/30/24 05:50 Chemistry Test 04/30/24 05:50 Calcium Level 9.3 mg/dL (8.7-10.4) Magnesium Level 1.9 mg/dL (1.6-2.6) Urinalysis Test 04/26/24 16:17 Urine Color Yellow (Yellow) Urine Clarity Clear (Clear) Urine pH 6.0 (5.0-9.0) Urine Specific [place] 1.014 (1.001-1.035) Urine Protein Negative (Negative) Urine Ketones Negative (Negative) Urine Blood Negative /uL (Negative) Urine Nitrite Negative (Negative) Urine Bilirubin Negative (Negative) Urine Urobilinogen Normal mg/dL (Negative) Urine Leukocyte Esterase Negative /uL (Negative) Urine RBC 1 /hpf (0 - 4) Urine WBC 1 /hpf (0 - 5) Urine Squamous Epithelial Cells Few /hpf (<5) Urine Bacteria None seen /hpf (None Seen) Urine Glucose Normal mg/dL (Normal) Labs and/or images reviewed: Labs reviewed by me, Image(s) reviewed by me Assessment/Plan Assessment/Plan A 68-year-old female patient with multiple comorbidities; who presented to the emergency department after a fall that resulted in left hip fracture. #Left hip pain due to comminuted displaced left proximal femur intertrochanteric fracture due to fall status post repair with closed reduction and intramedullary nail on April 27, 2024; continue pain management as needed; reviewed the available imaging studies; DVT prophylaxis; fall precautions; physical therapy is following; continue monitoring #Blood loss anemia; dropping hemoglobin; continue monitoring #Acute metabolic/toxic encephalopathy; patient has no recollection of the fall but awake, alert, and oriented; still with confusion; ordered brain MRI; negative drug screen and alcohol level; continue monitoring #History of stroke; holding aspirin and statin for now; head CT reviewed as above; continue monitoring #History of brain aneurysm status post coiling; shown on head CT; continue monitoring #Thrombocytopenia; mild; no signs/symptoms of bleeding; continue monitoring #RIA with hypokalemia; suspected vasomotor nephropathy; replace electrolyte as needed; avoid nephrotoxic agents; continue IV fluids; continue monitoring #Essential hypertension; resumed home antihypertensive medications; continue IV hydralazine as needed; continue monitoring Automatic Line Set Up Mechanic consulted for discharge planning This medical document was created using an electronic medical record system with computerized dictation system. Although this document has been carefully reviewed, there might still be some phonetic and typographical errors. These areas are purely typographical due to imperfections of the software programs, and do not reflect any compromise in the patient's medical care. Plan discussed with: Patient, Other (Nurse) My Orders Orders - MARIO GREENFIELD MD Procedure Category Date Status Time Benazepril Hcl Tablet PHA 05/01/24 In Process (Lotensin Tablet) 10:00 Atenolol Tablet PHA 05/01/24 In Process (Tenormin Tablet) 10:00 Amlodipine Tablet PHA 05/01/24 In Process (Norvasc Tablet) 10:00 Hydralazine Hcl PHA 04/30/24 In Process Tablet (Apresoline 14:00 Date of Service: Apr 30, 2024 Billing Provider: MARIO GREENFIELD MD Common Visit Codes: [id number] INP/OBS CARE(HIGH) MARIO GREENFIELD MD Apr 30, 2024 13:23
[2024-04-30] MEDS: hydrALAZINE HCL 25 MG TAB PO SCH (13:47)
[2024-05-01] VITALS (8 sets, daily range): BP systolic 142–186; BP diastolic 44–73; PULSE 56–81; RESP 18–20; TEMP 97.8–98.5; O2SAT 93–97
[2024-05-01 06:28] LABS: Basophils # (auto) 0 10 ^3/uL (0-0.2); Basophils % (auto) 0.8 % (0.0-2.0); Eosinophils # (auto) 0.1 10 ^3/uL (0-0.8); Eosinophils % (auto) 2.4 % (0.0-7.0); Hematocrit 27.4 % (36.0-46.0); Hemoglobin 9.4 g/dL (12.2-16.2); Lymphocytes # (auto) 0.9 10 ^3/uL (0.4-5.4); Lymphocytes % (auto) 17.8 % (10.0-50.0); Mean Corpuscular Hemoglobin 29.1 pg (28.0-32.0); Mean Corpuscular Hgb Conc. 34.2 g/dL (32.0-36.0); Mean Corpuscular Volume 85.2 fL (80.0-100.0); Monocytes # (auto) 0.5 10 ^3/uL (0-1.3); Monocytes % (auto) 8.6 % (0.0-12.0); Neutrophils # (auto) 3.7 10 ^3/uL (1.6-8.6); Neutrophils % (auto) 70.4 % (37.0-80.0); Nucleated Red Blood Cells % 0.2 %; Platelet Count (auto) 167 10^3/uL (140-450); Red Blood Cells 3.22 10^6/uL (4.0-5.20); Red Cell Distribution Width 14.1 % (11.8-14.3); White Blood Cell 5.3 10^3/uL (4.4-10.8)
[2024-05-01 06:46] LABS: Chloride 106 mmol/L (98-107); Potassium 3.6 mmol/L (3.5-5.1); Sodium 141 mmol/L (136-145)
[2024-05-01 06:47] LABS: Anion Gap 10 (5-15); Calcium 9.8 mg/dL (8.7-10.4); Carbon Dioxide 25 mmol/L (20-31)
[2024-05-01 06:52] LABS: BUN/Creatinine Ratio 26.8 (10.0-20.0); Blood Urea Nitrogen 15 mg/dL (9-23); Glucose 94 mg/dL (74-106)
--- NOTE | 2024-05-01 09:11 | ECG ---
[facility] Test Date: 2024-04-27 Test Time: 12:21:02 Pat Name: MARYA VIGIL Department: Respiratoy Room: 0246 B Gender: F Director Of Retail: JEFF : 1955 Requested By: MINOR REYES Order Number: [id number] Reading MD: Iliana Lam Measurements Intervals [place] Rate: 69 P: 77 NH: 157 QRS: 51 QRSD: 102 T: 27 QT: 429 QTc: 460 Interpretive Statements Sinus rhythm Probable left atrial enlargement Left ventricular hypertrophy Electronically Signed On 05-02-2024 9:08:42 PST by Iliana Lam Please click the below link to view image of tracing.
[2024-05-01] MEDS: BENAZEPRIL HCL 10 MG TAB PO SCH (09:30)
[2024-05-01] MEDS: ATENOLOL 25 MG TAB PO SCH (09:31)
[2024-05-01] MEDS: amLODIPine BESYLATE 5 MG TAB PO SCH (09:32)
--- NOTE | 2024-05-01 19:11 | DVHPN2 ---
Subjective Controlled left hip pain; still confused; decreasing blood pressure readings Reviewed: Care Plan, H&P, Labs, Medications, Previous Orders, Radiology, Other (Consultation) Changes from previous H/P or p: Changes Objective Vitals Vital Signs Date Time Temp Pulse Resp B/P (MAP) Pulse Ox O2 Delivery O2 Flow Rate FiO2 05/01/24 17:35 97.9 57 20 142/49 (80) 94 97.9 05/01/24 08:00 Room Air* 0 21 Intake/Output Intake and Output 05/01/24 07:00 Intake Total 650 ml Output Total 900 ml Balance -250 ml Intake Oral 650 ml Output Urine Total 900 ml Exam Female nurse was poll watcher General Appearance: Alert, Oriented X3, Cooperative, No acute distress, Other (Confused) HEENT: Atraumatic Lungs: Clear to auscultation, Normal air movement Cardiovascular: Regular rate, Normal S1, Normal S2, No murmurs Abdomen: Normal bowel sounds, Soft, No tenderness Musculoskeletal: Other (Clean dressing on the surgical wound with no swelling/discharge/bleeding with mild tenderness) Neuro: Normal speech, Cranial nerves 3-12 NL, Other (Confused) Psych/Mental Status: Mental status NL, Mood NL Medications Current Medications Medications Dose Ordered Sig/Mimi Route Start Time Stop Time Status Last Admin Dose Admin Lorazepam 0.5 mg Q6HP PRN PO 04/26/24 12:30 Al Hydrox/Mg Hydrox/Simethicone 30 ml Q6HP PRN PO 04/26/24 12:30 Docusate Sodium 100 mg BIDPRN PRN PO 04/26/24 12:30 Acetaminophen 650 mg Q6HP PRN PO 04/26/24 12:30 Temazepam 15 mg QHSP PRN PO 04/26/24 12:30 Acetaminophen/ Hydrocodone Bitart 1 tab Q4HP PRN PO 04/26/24 12:30 04/28/24 18:03 1 TAB Ondansetron HCl 4 mg Q4HP PRN IV 04/26/24 12:30 Morphine Sulfate 2 mg Q4HPRN PRN IV 04/26/24 12:30 04/29/24 09:46 2 MG Hydralazine HCl 10 mg Q6HPRN PRN IV 04/26/24 12:30 04/30/24 08:19 10 MG Sodium Chloride 10 ml Q8HR IV 04/27/24 22:00 121/24 17:38 10 ML Enoxaparin Sodium 40 mg DAILY SC 04/28/24 10:00 04/30/24 08:19 40 MG Benazepril HCl 40 mg DAILY PO 05/01/24 10:00 05/01/24 09:30 40 MG Atenolol 100 mg DAILY PO 05/01/24 10:00 05/01/24 09:31 100 MG Amlodipine Besylate 5 mg DAILY PO 05/01/24 10:00 05/01/24 09:32 5 MG Hydralazine HCl 25 mg Q8HR PO 04/30/24 14:00 05/01/24 14:15 25 MG Laboratory Results Laboratory Tests 05/01/24 06:00 Chemistry Test 05/01/24 06:00 Calcium Level 9.8 mg/dL (8.7-10.4) Urinalysis Test 04/26/24 16:17 Urine Color Yellow (Yellow) Urine Clarity Clear (Clear) Urine pH 6.0 (5.0-9.0) Urine Specific [place] 1.014 (1.001-1.035) Urine Protein Negative (Negative) Urine Ketones Negative (Negative) Urine Blood Negative /uL (Negative) Urine Nitrite Negative (Negative) Urine Bilirubin Negative (Negative) Urine Urobilinogen Normal mg/dL (Negative) Urine Leukocyte Esterase Negative /uL (Negative) Urine RBC 1 /hpf (0 - 4) Urine WBC 1 /hpf (0 - 5) Urine Squamous Epithelial Cells Few /hpf (<5) Urine Bacteria None seen /hpf (None Seen) Urine Glucose Normal mg/dL (Normal) Labs and/or images reviewed: Labs reviewed by me, Image(s) reviewed by me Assessment/Plan Assessment/Plan A 68-year-old female patient with multiple comorbidities; who presented to the emergency department after a fall that resulted in left hip fracture. #Left hip pain due to comminuted displaced left proximal femur intertrochanteric fracture due to fall status post repair with closed reduction and intramedullary nail on April 27, 2024; continue pain management as needed; reviewed the available imaging studies; DVT prophylaxis; fall precautions; physical therapy is following; continue monitoring #Blood loss anemia; stable hemoglobin; continue monitoring #Acute metabolic/toxic encephalopathy; patient has no recollection of the fall but awake, alert, and oriented; still with confusion; ordered brain MRI; negative drug screen and alcohol level; continue monitoring #History of stroke; holding aspirin and statin for now; head CT reviewed as above; continue monitoring #History of brain aneurysm status post coiling; shown on head CT; continue monitoring #Thrombocytopenia; mild; no signs/symptoms of bleeding; continue monitoring #RIA with hypokalemia; suspected vasomotor nephropathy; replace electrolyte as needed; avoid nephrotoxic agents; continue IV fluids; continue monitoring #Essential hypertension; resumed home antihypertensive medications; continue IV hydralazine as needed; continue monitoring Color Corrector consulted for discharge planning; will request home health for home physical therapy This medical document was created using an electronic medical record system with computerized dictation system. Although this document has been carefully reviewed, there might still be some phonetic and typographical errors. These areas are purely typographical due to imperfections of the software programs, and do not reflect any compromise in the patient's medical care. Plan discussed with: Patient, Other (Nurse) Date of Service: May 01, 2024 Billing Provider: MARIO GREENFIELD MD Common Visit Codes: [id number] INP/OBS CARE(HIGH) MARIO GREENFIELD MD May 01, 2024 19:11
[2024-05-02] VITALS (7 sets, daily range): BP systolic 125–150; BP diastolic 56–76; PULSE 56–73; RESP 16–20; TEMP 97.6–98.3; O2SAT 95–98
[2024-05-02 08:21] LABS: Basophils # (auto) 0.1 10 ^3/uL (0-0.2); Eosinophils # (auto) 0.1 10 ^3/uL (0-0.8); Eosinophils % (auto) 1.7 % (0.0-7.0); Hematocrit 28.6 % (36.0-46.0); Hemoglobin 9.7 g/dL (12.2-16.2); Lymphocytes # (auto) 1.1 10 ^3/uL (0.4-5.4); Mean Corpuscular Hemoglobin 28.9 pg (28.0-32.0); Mean Corpuscular Volume 84.9 fL (80.0-100.0); Monocytes # (auto) 0.6 10 ^3/uL (0-1.3); Monocytes % (auto) 8.3 % (0.0-12.0); Neutrophils # (auto) 4.8 10 ^3/uL (1.6-8.6); Nucleated Red Blood Cells % 0.1 %; Platelet Count (auto) 222 10^3/uL (140-450); Red Blood Cells 3.37 10^6/uL (4.0-5.20); Red Cell Distribution Width 14.1 % (11.8-14.3); White Blood Cell 6.6 10^3/uL (4.4-10.8)
[2024-05-02] MEDS ORDERED: ASPI1TAB19 PO (13:10)
[2024-05-02] MEDS ORDERED: ACET-1079 PO (13:12)
[2024-05-02] MEDS ORDERED: IBU600T PO (13:12)
[2024-05-02] MEDS ORDERED: FAMO20TA10 PO (13:12)
--- NOTE | 2024-05-02 15:15 | DVHDS2 ---
Discharge Summary Date of Admission Apr 26, 2024 at 12:23 Date of Discharge: May 02, 2024 Labs/Diagnostic Data: Laboratory Results Test 05/02/24 07:03 05/01/24 06:00 04/30/24 05:50 04/29/24 05:31 White Blood Count 6.6 10^3/uL (4.4-10.8) Red Blood Count 3.37 10^6/uL (4.0-5.20) Hemoglobin 9.7 g/dL (12.2-16.2) Hematocrit 28.6 % (36.0-46.0) Mean Corpuscular Volume 84.9 fL (80.0-100.0) Mean Corpuscular Hemoglobin 28.9 pg (28.0-32.0) Mean Corpuscular Hemoglobin Concent 34.0 g/dL (32.0-36.0) Red Cell Distribution Width 14.1 % (11.8-14.3) Platelet Count 222 10^3/uL (140-450) Mean Platelet Volume 9.2 fL (6.9-10.8) Neutrophils (%) (Auto) 72.0 % (37.0-80.0) Lymphocytes (%) (Auto) 17.0 % (10.0-50.0) Monocytes (%) (Auto) 8.3 % (0.0-12.0) Eosinophils (%) (Auto) 1.7 % (0.0-7.0) Basophils (%) (Auto) 1.0 % (0.0-2.0) Neutrophils # (Auto) 4.8 10 ^3/uL (1.6-8.6) Lymphocytes # (Auto) 1.1 10 ^3/uL (0.4-5.4) Monocytes # (Auto) 0.6 10 ^3/uL (0-1.3) Eosinophils # (Auto) 0.1 10 ^3/uL (0-0.8) Basophils # (Auto) 0.1 10 ^3/uL (0-0.2) Nucleated Red Blood Cells 0.1 % Sodium Level 141 mmol/L (136-145) Potassium Level 3.6 mmol/L (3.5-5.1) Chloride Level 106 mmol/L (98-107) Carbon Dioxide Level 25 mmol/L (20-31) Anion Gap 10 (5-15) Blood Urea Nitrogen 15 mg/dL (9-23) Creatinine 0.56 mg/dL (0.550-1.02) Glomerular Filtration Rate Calc 99 mL/min (>90) BUN/Creatinine Ratio 26.8 (10.0-20.0) Serum Glucose 94 mg/dL (74-106) Calcium Level 9.8 mg/dL (8.7-10.4) Magnesium Level 1.9 mg/dL (1.6-2.6) Total Bilirubin 0.7 mg/dL (0.2-1.0) Aspartate Amino Transferase (AST) 11 U/L (13-40) Alanine Aminotransferase (ALT) < 9 U/L (7-40) Alkaline Phosphatase 48 U/L (46-116) Total Protein 5.6 g/dL (5.7-8.2) Albumin 3.7 g/dL (3.2-4.8) Test 04/27/24 20:29 04/27/24 05:32 04/26/24 16:17 04/26/24 09:39 POC Glucose 311 mg/dl (70-106) Prothrombin Time 11.1 sec (9.3-11.8) Prothrombin Time INR 1.05 (0.9-1.15) Activated Partial Thromboplast Time 28.8 SEC (24.5-34.5) Plasma/Serum Blood Alcohol < 3.0 mg/dL (<10) Urine Color Yellow (Yellow) Urine Clarity Clear (Clear) Urine pH 6.0 (5.0-9.0) Urine Specific [place] 1.014 (1.001-1.035) Urine Protein Negative (Negative) Urine Ketones Negative (Negative) Urine Blood Negative /uL (Negative) Urine Nitrite Negative (Negative) Urine Bilirubin Negative (Negative) Urine Urobilinogen Normal mg/dL (Negative) Urine Leukocyte Esterase Negative /uL (Negative) Urine RBC 1 /hpf (0 - 4) Urine WBC 1 /hpf (0 - 5) Urine Squamous Epithelial Cells Few /hpf (<5) Urine Bacteria None seen /hpf (None Seen) Urine Glucose Normal mg/dL (Normal) Urine Opiates Screen Neg (NEGATIVE) Urine Fentanyl Screen Neg (NEGATIVE) Urine Barbiturates Screen Neg (NEGATIVE) Urine Phencyclidine Screen Neg (NEGATIVE) Urine Amphetamines Screen Neg (NEGATIVE) Urine Benzodiazepines Screen Neg (NEGATIVE) Urine Cocaine Screen Neg (NEGATIVE) Urine Cannabinoids Screen Neg (NEGATIVE) Troponin I High Sensitivity 3 ng/L (</=34) Other Laboratory Tests 05/02/24 07:03 05/01/24 06:00 Brief Hx & Hospital Course: 68-year-old female admitted for hip pain, found to have left intratrochanteric femoral fracture, status post intramedullary nail and closed reduction, work with PT, pain managed. Patient also had history of CVA and brain aneurysm status post coiling. Condition at Discharge: Good Final Diagnosis/Problems List hip fracture Discharge Disposition: Home with Health Services Discharge Instruct/Medications Diet: Consistent carbohydrate, Cardiac 2g Na,low cholest Activity: No Restrictions, As Tolerated Follow Up/Referral: orthopedic in 1-2 weeks Medications: tylenol motrin pepcid asa 325 for 5 days 37 Discharge Statement: "Patient was advised to return to the ER or call 911 if any headaches, dizziness, shortness of breath, chest pain, abdominal pain, bleeding, fevers, or worsening of medical condition. Patient was counseled about treatment plan, medications, possible side effects, patientverbalized understanding. All questions were answered to the best of my ability. This discharge took greater then 30 minutes in planning, reviewing documentation, counseling the patient, and discussing with other team members." ASSESSMENT ASSESSMENT Assessment Left proximal femoral intertrochanteric fracture Status post closed reduction and intramedullary nail Blood loss anemia, stable Acute metabolic/toxic encephalopathy, resolved History of CVA History of brain aneurysm status post coiling Thrombocytopenia RIA from [facility], resolved Hypertension Date of Service: May 02, 2024 Billing Provider: SILVIO HATHAWAY MD Common Visit Codes: [id number] DISCH DAY >30min SILVIO HATHAWAY MD May 02, 2024 15:15
[2024-05-03] MEDS ORDERED: amLODIPine BESYLATE 5 MG TAB PO SCH (10:00)
== END 2024-05-02 18:03 | disposition home health service (06) | DRG 480 ==
LOC: ER 09:04 → EDBD 09:04 → OVERFLOW 12:23 → EAST 18:54
PROVIDERS: ADMIT Hospitalist; ATTEND Student in an Organized Health Care Education/Training Program
PROC: 0QS736Z Reposition Left Upper Femur with Intramedullary Internal Fixation Device, Percutaneous Approach (ICD-10-PCS; principal; 2024-04-27 14:06)
DX: S72.142A Displaced intertrochanteric fracture of left femur, initial encounter for closed fracture (principal); G92.8 Other toxic encephalopathy; N17.0 Acute kidney failure with tubular necrosis; E87.6 Hypokalemia; D69.6 Thrombocytopenia, unspecified; R73.9 Hyperglycemia, unspecified; I16.0 Hypertensive urgency; F01.50 Vascular dementia, unspecified severity, without behavioral disturbance, psychotic disturbance, mood disturbance, and anxiety; D50.0 Iron deficiency anemia secondary to blood loss (chronic); Z79.899 Other long term (current) drug therapy; Z86.73 Personal history of transient ischemic attack (TIA), and cerebral infarction without residual deficits; W18.39XA Other fall on same level, initial encounter; Y93.89 Activity, other specified; Y92.238 Other place in hospital as the place of occurrence of the external cause; Y99.8 Other external cause status
CPT/HCPCS: 36415; 70450; 71045; 73501; 73502; 76000; 80048; 80053; 80307; 80320; 81001; 82962; 83735; 84484; 85025; 85610; 85730; 86850; 86900; 86901; 93005; 96374; 96375; 97110; 97116; 97163; 97530; C1713; G0378; J0131; J0171; J1100; J1815; J1885; J2405; J2704; J3490

== ENCOUNTER 2025-01-21 11:18 | Emergency (ER) | payer MEDICARE, MEDICAID ==
[~2025-01-21] VITALS: Ht 162.6 cm; Wt 54.0 kg
[~2025-01-21 11:18] MED LIST: ACET-1079 PO; AMLO1TAB22 PO; ASPI1TAB19 PO; ATEN100T PO; BENA40TA71 PO; FAMO20TA10 PO; HYDR25TA88 PO; IBU600T PO
--- NOTE | 2025-01-21 11:55 | ED.PDOC ---
History of Present Illness HPI Comments A 69 YEAR OLD FEMALE PRESENTS TO THE ED WITH COMPLAINT OF STAPLE REMOVAL REQUEST AND LEFT HIP PAIN S/P HIP SURGERY. PATIENT HAD LEFT HIP REPAIR SURGERY IN APRIL 2024. PATIENT REPORTS THAT SHE HAD EDU PLACED DUE TO SURGERY AND NEEDS THEM REMOVED. PATIENT HAS 5 EDU ON HER LEFT SIDE. PATIENT IS ALSO REQUESTING A LEFT HIP X-RAY BECAUSE ONE LEG IS SHORTER THAN THE OTHER AND IT IS DIFFICULT FOR HER TO AMBULATE. ADDITIONALLY, PATIENT IS REQUESTING A REFILL ON HER HYPERTENSION MEDICATION. PATIENT DENIES FEVER, CHILLS, SHORTNESS OF BREATH, CHEST PAIN, ABDOMINAL PAIN, NAUSEA, VOMITING, HEADACHE, OR OTHER COMPLAINTS. NO OTHER SYMPTOMS OR MODIFYING FACTORS AT THIS TIME. PATIENT IS ALERT, ORIENTED X 4, AND HAS STEADY GAIT. Chief Complaint: Wound Check Time Seen by MD: 11:42 Reviewed Notes: Nurses Notes, Medications, Allergies Allergies: Coded Allergies: NO KNOWN ALLERGIES (Unverified , 04/26/24) Home Meds Active Scripts Atenolol (Atenolol) 100 Mg Tab, 1 TAB PO DAILY, #30 TAB Prov:JESSEE WHALEN 01/21/25 Famotidine (PEPCID TABLET) 20 Mg Tb, 1 TAB PO BID for 10 Days, #20 TAB 0 Refills Prov:SILIVO HATHAWAY MD 05/02/24 Acetaminophen (Tylenol) 325 Mg Tb, 650 MG PO TID for 5 Days, #30 TAB Prov:SILVIO HATHAWAY MD 05/02/24 Ibuprofen Micronized (MOTRIN TABLET) 600 Mg Tb, 400 MG PO TID for 5 Days, #10 TAB *Black box warning-NSAIDS can increase risk of ID & hypertension, GI irritation, ulceration, bleed, perferation. Do not use post cardiac surgery. Use short duration/lowest effective dose. Prov:SILVIO HATHAWAY MD 05/02/24 Aspirin (Aspirin) 81 Mg Tab, 324 MG PO DAILY for 5 Days, #20 TAB Prov:SILVIO HATHAWAY MD 05/02/24 Reported Medications Hydralazine Hcl (Hydralazine Hcl) 25 Mg Tab, 25 MG PO for 30 Days, MG 04/30/24 Atenolol (Atenolol) 100 Mg Tab, 100 MG PO DAILY for 30 Days, MG 04/30/24 Benazepril Hcl (Benazepril Hcl) 40 Mg Tab, 40 MG PO DAILY for 30 Days, MG 04/30/24 Amlodipine Besylate (Amlodipine Besylate) 5 Mg Tab, 5 MG PO DAILY for 30 Days, MG 04/30/24 Information Source: Patient Mode of Arrival: Ambulatory Severity: Moderate Timing: Months Duration: Since onset, Days Prehospital treatment: None Medication Refill: For: Other (STAP;LES REMOVAL AND HTN MEDICATION REFILL) Past Medical History PAST MEDICAL HISTORY: Dementia Surgical History (Other): LEFT HIP REPAIR 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 Family History Family History: Reviewed,noncontributory to illness Social History Smoker: Non-Smoker Alcohol: Denies ETOH Use Drugs: Denies Drug Use Lives In: Home Constitutional: denies: chills, diaphoresis, fatigue, fever, malaise, sweats, weakness, others EENTM: denies: blurred vision, double vision, ear bleeding, ear discharge, ear drainage, ear pain, ear ringing, eye pain, eye redness, hearing loss, mouth pain, mouth swelling, nasal discharge, nose bleeding, nose congestion, nose pain, photophobia, tearing, throat pain, throat swelling, voice changes, others Respiratory: denies: cough, hemoptysis, orthopnea, SOB at rest, shortness of breath, SOB with excertion, stridor, wheezing, others Cardiovascular: denies: chest pain, dizzy spells, diaphoresis, Dyspnea on exertion, edema, irregular heart beat, left arm pain, lightheadedness, palpitations, PND, syncope, others Gastrointestinal: denies: abdomen distended, abdominal pain, blood streaked bowels, constipated, diarrhea, dysphagia, difficulty swallowing, hematemesis, melena, nausea, poor appetite, poor fluid intake, rectal bleeding, rectal pain, vomiting, others Genitourinary: denies: abnormal vagina bleeding, burning, dyspareunia, dysuria, flank pain, frequency, hematuria, incontinence, pain, , vagina discharge, urgency, others Neurological: denies: dizziness, fainting, headache, left sided numbness, left sided weakness, numbness, paresthesia, pre-existing deficit, right sided numbness, right sided weakness, seizure, speech problems, tingling, tremors, weakness, others Musculoskeletal: reports: joint pain, muscle pain; denies: back pain, gout, joint swelling, muscle stiffness, neck pain, others Integumetry: denies: bruises, change in color, change in hair/nails, dryness, laceration, lesions, lumps, rash, wounds, others Allergic/Immunocompromised: denies: Difficulty Healing, Frequent Infections, Hives, Itching, others Hematologic/Lymphatic: denies: anemia, blood clots, easy bleeding, easy bruising, swollen glands, others Endocrine: denies: excessive hunger, excessive sweating, excessive thirst, excessive urination, flushing, intolerance to cold, intolerance to heat, unexplained weight gain, unexplained weight loss, others Psychiatric: denies: anxiety, bipolar disorder, depression, hopeless, panic disorder, schizophrenia, sleepless, suicidal, others All Other Systems: Reviewed and Negative Physical Exam General Appearance: No Apparent Distress, Normal HEENT: Normal ENT Inspection, PERRL/EOMI, Pharynx Normal, TMs Normal Neck: Full Range of Motion, Non-Tender, Normal, Normal Inspection Respiratory: Chest Non-Tender, Lungs Clear, No Accessory Muscle Use, No Respiratory Distress, Normal Breath Sounds Cardiovascular: No Edema, No JVD, No Murmur, No Gallop, Normal Peripheral Pulses, Regular Rate/Rhythm Breast Exam: Deferred Gastrointestinal: No Organomegaly, Non Tender, No Pulsatile Mass, Normal Bowel Sounds, Soft Genitalia: Deferred Pelvic: Deferred Rectal: Deferred Extremities: No calf tenderness, Normal capillary refill, Normal inspection, Normal range of motion, No pedal edema, Tender (LEFT HIP, NO BONY TENDERNESS, SWELLING AND DEFORMITY. ) Musculoskeletal : Apperance: Normal Neurologic: Alert, casting supervisor II-XII nml as Tested, No Motor Deficits, Normal Affect, Normal Mood, No Sensory Deficits Cerebellar Function: Normal Reflexes: Normal Skin: Dry, Lacerations (LEFT LATERAL HIP, INCISION WOUND HEALED, NO INFECTION SIGNS. ), Normal Color, Warm Peripheral Pulses: 2+ carotid (R), 2+ carotid (L), 2+ dorsalis pedis (R), 2+ dorsalis pedis (L) Lymphatic: No Adenopathy Was a procedure done? Was a procedure done?: No Differential Dx Considerations may include: CHRONIC LEFT HIP PAIN, EDU REMOVAL, HTN MEDICATION REFILL X-Ray, Labs, Meds, VS Vital Signs Date Time Temp Pulse Resp B/P (MAP) Pulse Ox O2 Delivery O2 Flow Rate FiO2 01/21/25 11:20 97.8 59 14 193/77 97 97.8 PATIENT: WESLEY VIGILCT: [id number]: [id number] : 1955 LOC: ER ROOM / BED: / AGE / SEX: 69 / F ADM STATUS: REG ER SERVICE 1145 ORDERING PHYSICIAN: JESSEE WHALEN PROCEDURE(s): LHIP - L HIP COMPLETE XRAY REASON: PAIN, NO INJURY ORDER NUMBER(s): [id number], ACCESSION NUMBER(s): [id number] CLINICAL INDICATION: PAIN, NO INJURY TECHNIQUE: 3 XY L HIP COMPLETE XRAY Comparison: XY L HIP 1V XRAY on DOS: 04/27/24, XY L HIP COMPLETE XRAY on DOS: 04/26/24 FINDINGS/IMPRESSION: : The screw involving the fixation device of the left hip extends outside of the f emoral head. Findings are acute when compared to the prior study. Impression: The screw component of the fixation device of the left hip extends outside the contours of the left femoral head. Acute displacement is most likely present in view of the prior studies from 04/27/2024. ATED BY: ALOK CANO MD DICTATED DATE/TIME: 01/21/251215 SIGNED BY: ALOK CANO MD SIGNED DATE/TIME: 01/21/251215 CC: X-Ray, Labs, Meds, VS Comment EXTERNAL MEDICAL RECORDS REVIEWED: [NONE] INDEPENDENT HISTORIANS: [NONE] SOCIAL DETERMINANTS OF HEALTH: [NONE] LABS ORDERED: NONE REVIEWED AND INTERPRETED RESULTS: NONE IMAGING ORDERED: L HIP X-RAY TREATMENTS ORDERED: PROCEDURES PERFORMED: NONE CRITICAL CARE TIME: NONE I HAVE DISCUSSED THE PATIENT WITH THE ATTENDING PHYSICIAN, DR. JASON MCQUEEN, AND SHE AGREES WITH THE PATIENT'S PLAN OF CARE AND DISPOSITION. BASED ON HISTORY OF PRESENT ILLNESS, AND PHYSICAL EXAM, PATIENT WILL BE DISCHARGED HOME. DISCUSSED PLAN FOR DISCHARGE HOME WITH RX [[id number]]. MEDICATION WARNINGS GIVEN. SHARED DECISION MAKING: DISCUSSED WITH PATIENT THAT THEIR WORKUP WAS NORMAL. PATIENT INSTRUCTED TO FOLLOW UP WITH PRIMARY CARE PROVIDER IN 1-2 DAYS FOR RE- EVALUATION OF SYMPTOMS. PATIENT VERBALIZES UNDERSTANDING TO RETURN TO ED FOR NEW OR WORSENING SYMPTOMS OR IF FOLLOW UP WITH PCP CANNOT BE OBTAINED. PATIENT FEELS COMFORTABLE GOING HOME AT THIS TIME. ALL QUESTIONS ADDRESSED AT TIME OF DISCHARGE. Time of 1ST Reevaluation: 12:34 Reevaluation 1ST: Improved Patient Education/Counseling: Diagnosis, Treatment, Need For Follow Up Family Education/Counseling: Diagnosis, Treatment, Need For Follow Up Medical Screening: No EMC Exist At This Time SEPSIS Sepsis Screen Date sepsis recognized/suspect: Jan 21, 2025 Time Sepsis recognized/suspect: 1126 Recent Procedure: No On Antibiotic Therapy: No Respiratory Rate >20: No Heart Rate >90: No Temp<36 C (96.8 F) or >38.3 C: No SBP <90 or MAP <65 mmHG: No New Acute Mental Status Change: No Is the patient on CPAP, BIPAP,: No Physician Orders L Hip Complete Xray (01/21/25 11:45) Vital Signs Date Time Temp Pulse Resp B/P (MAP) Pulse Ox O2 Delivery O2 Flow Rate FiO2 01/21/25 11:20 97.8 59 14 193/77 97 97.8 Departure 1 Departure Time of Disposition: 12:34 Impression: Primary Impression: Chronic left hip pain Additional Impressions: Removal of edu Medication refill Disposition: HOME / SELF CARE / HOMELESS Condition: Stable Additional Instructions: FOLLOW-UP WITH PCP IN 1 TO 2 DAYS. TAKE MEDICATIONS PRESCRIBED. RETURN TO ED FOR ANY NEW OR WORSENING SYMPTOMS. e-Prescriptions Atenolol (Atenolol) 100 Mg Tab 1 TAB PO DAILY, #30 TAB Prov: JESSEE WHALEN 01/21/25 Discharged With: Self, Relative Critical Care Note Critical Care Time?: No Stability Stability form required: No Heart Score Heart Score: Heart Score Response (Comments) Value History N/A 0 EKG N/A 0 Age N/A 0 Risk Factors N/A 0 Troponin N/A 0 Total 0 I personally scribed for JESSEE WHALEN ([email or web address]) on 01/21/25 at 11:55. Electronically submitted by Chris Gauthier ([email or web address]). I personally scribed for JESSEE WHALEN ([email or web address]) on 01/21/25 at 12:28. Electronically submitted by Chris Gauthier ([email or web address]). JESSEE WHALEN Jan 21, 2025 11:55
--- NOTE | 2025-01-21 12:18 | DVH ---
CLINICAL INDICATION: PAIN, NO INJURY TECHNIQUE: 3 XY L HIP COMPLETE XRAY Comparison: XY L HIP 1V XRAY on DOS: 04/27/24, XY L HIP COMPLETE XRAY on DOS: 04/26/24 FINDINGS/IMPRESSION: : The screw involving the fixation device of the left hip extends outside of the femoral head. Findings are acute when compared to the prior study. Impression: The screw component of the fixation device of the left hip extends outside the contours of the left f emoral head. Acute displacement is most likely present in view of the prior studies from 04/27/2024.
[2025-01-21] MEDS ORDERED: ATEN100T PO (12:30)
[2025-01-21 12:41] VITALS: BP 193/77; PULSE 59; RESP 14; TEMP 97.8; O2SAT 97
== END 2025-01-21 12:40 | disposition home or self-care (01) ==
LOC: ER 11:18
DX: G89.29 Other chronic pain (principal); F03.90 Unspecified dementia, unspecified severity, without behavioral disturbance, psychotic disturbance, mood disturbance, and anxiety; Z48.02 Encounter for removal of sutures; Z76.0 Encounter for issue of repeat prescription; Z98.890 Other specified postprocedural states; Z79.899 Other long term (current) drug therapy
CPT/HCPCS: 73502